=== PATIENT | male | born 1950 | race Caucasian/White ===

== ENCOUNTER 2019-06-07 00:45 | Day surgery (SDC) | payer MEDICARE, SELFPAY ==
[2019-04-17 14:32] VITALS: BMI 27.8
[2019-06-07 07:16] VITALS: BP 141/81; PULSE 78; RESP 20; TEMP 36.6; O2SAT 99; BMI 28.3
--- NOTE | 2019-06-07 07:41 | PM.HPGS ---
History of Present Illness History of Present Illness Consent: Risks, benefits, and alternatives have been discussed and questions answered. Patient agrees to proceed with procedure. Chief complaint: Neoplasm Screening Narrative: Tim Kinney Jr. is a 68 year old male here for screening colonoscopy PMF Past Medical History Medical History Torn rotator cuff Surgical History Surgical History H/O arthroscopy of knee History of carpal tunnel release History of repair of rotator cuff Family History Family History Mother Family history of glaucoma Father Family history of chronic obstructive pulmonary disease Social History Social History Smoking status: Never smoker Alcohol intake: current Gender identity (if verbalized by the patient): Male Meds Home Medications and Allergies Home Medications Medication Instructions Recorded Confirmed Type multivitamin 1 tablet PO DAILY 02/19/19 04/17/19 History aspirin 325 mg PO DAILY 04/17/19 06/07/19 History atorvastatin 10 mg tablet 10 mg PO DAILY #90 tablet 04/23/19 06/05/19 Rx glucos sul [id number]-C-Mn 1 cap PO DAILY 06/05/19 06/05/19 History [Glucosamine Chondroitin] omega 7-awi-vmb-fish oil [Fish Oil] 1 cap PO DAILY 06/05/19 06/05/19 History Allergies Allergy/AdvReac Type Severity Reaction Status Date / Time No Known Allergies Allergy Verified 06/07/19 07:31 Vital Signs Vital Signs - 24 hr 06/07/19 07:16 Temperature 36.6 C Pulse Rate 78 Respiratory Rate 20 Blood Pressure 141/81 H Pulse Oximetry 99 Exam Resp: Auscultation: clear to auscultation bilaterally Cardio: Rate: regular rate Rhythm: regular rhythm GI: GI Palp: Yes Soft to palpation and No Tenderness to palpation present (GI) Assessment and Plan Assessment and plan (1) Colon cancer screening: Code(s): Z12.11 - Encounter for screening for malignant neoplasm of colon Status: Acute Assessment and Plan: Colonoscopy with possible biopsy or polypectomy or cautery or injection of substances.
[2019-06-07] MEDS: LACTATED RINGERS 1,000 ML 150 ML IV CONT (07:47)
--- NOTE | 2019-06-07 08:03 | WPDANESEPPF ---
Anes - Initial Pre Proc Eval Procedure: Operation Date: 06/07/19 08:30 Proposed Procedures p Screening Colonoscopy - Jann Jimenez MD Date/Time: 06/07/19 08:03 Surgeon: Jann Jimenez MD Pre Op Diagnosis: Neoplasm Screening Patient Data Age: 68 Gender: M Height: 6 ft Weight: 94.9 kg Last Vital Signs Temp 97.9 F 06/07/19 07:16 Pulse 78 06/07/19 07:16 Resp 20 06/07/19 07:16 BP 141/81 H 06/07/19 07:16 Pulse Ox 99 06/07/19 07:16 Allergies Allergy/AdvReac Type Severity Reaction Status Date / Time No Known Allergies Allergy Verified 06/07/19 07:31 Home Medications Medication Instructions Recorded Confirmed Type multivitamin 1 tablet PO DAILY 02/19/19 04/17/19 History aspirin 325 mg PO DAILY 04/17/19 06/07/19 History atorvastatin 10 mg tablet 10 mg PO DAILY #90 tablet 04/23/19 06/05/19 Rx glucos sul 2MQd-mev-qarhf-C-Mn 1 cap PO DAILY 06/05/19 06/05/19 History [Glucosamine Chondroitin] omega 2-xie-oxd-fish oil [Fish Oil] 1 cap PO DAILY 06/05/19 06/05/19 History Patient hx anesthesia problems: none Family hx anesthesia problems: none PMFSH Past Medical History Medical History (Updated 06/07/19 @ 08:03 by Norris Luz MD) Mixed hyperlipidemia Torn rotator cuff Surgical History Surgical History H/O arthroscopy of knee History of carpal tunnel release History of repair of rotator cuff Family History Family History Mother Family history of glaucoma Father Family history of chronic obstructive pulmonary disease Social History Social History Smoking status: Never smoker Alcohol intake: current Gender identity (if verbalized by the patient): Male Anes - Eval Final PreProcedure Day of Procedure 06/07/19 08:03 Patient weight: normal Heart: regular rate and rhythm Lungs: clear to auscultation Airway: Mallampati scale class II Neurological: alert and oriented Last oral intake: >/= 8 hours ASA classification: II Emergent: no Anesthetic plan: proceed Anesthesia type and monitoring: general GIVS and standard monitoring Informed Consent: The patient's anesthetic plan and its attendant risks and benefits were discussed with the patient/family/POA. Questions were solicited and answers provided to the satisfaction of the patient/family/POA.
--- NOTE | 2019-06-07 08:28 | SUR.OPER ---
Two transverse colon polyps cold snared- one specimen obtained- MD aware.
[2019-06-07 08:33] VITALS: BP 114/73; PULSE 76; RESP 18; O2SAT 94
[2019-06-07 08:43] VITALS: BP 123/79; PULSE 72; RESP 19; O2SAT 98
[2019-06-07 08:53] VITALS: BP 140/94; PULSE 70; RESP 18; O2SAT 97
== END 2019-06-07 09:13 | disposition home or self-care (01) ==
PROVIDERS: PCP Family Medicine; Visit Provider Internal Medicine Gastroenterology
PROC: 0DJD8ZZ Inspection of Lower Intestinal Tract, Via Natural or Artificial Opening Endoscopic (ICD-10-PCS; CPT 45378; principal; 2019-06-07 08:30)
DX: Z12.11 Encounter for screening for malignant neoplasm of colon (principal); D12.3 Benign neoplasm of transverse colon; K57.30 Diverticulosis of large intestine without perforation or abscess without bleeding; Z79.82 Long term (current) use of aspirin; E78.2 Mixed hyperlipidemia
CPT/HCPCS: 45385; 88305; J2704; J7120

== ENCOUNTER 2021-12-28 15:06 | Outpatient (CLI) | payer MEDICARE, SELFPAY ==
[2021-12-28 19:25] LABS: Iron 82 ug/dL (49-181)
[2021-12-28 19:36] LABS: Percent Iron Saturation 26 % (20-50)
[2021-12-28 20:16] LABS: Prostate Specific Antigen 0.9 ng/mL (< OR = 4.0)
[2022-01-01 18:25] LABS: Testosterone Free 23.6 pg/mL (35.0-155.0); Testosterone Total 175 ng/dL (250-1100)
== END 2021-12-28 15:07 | disposition home or self-care (01) ==
PROVIDERS: PCP Internal Medicine; Visit Provider Internal Medicine
DX: E29.1 Testicular hypofunction (principal); Z12.5 Encounter for screening for malignant neoplasm of prostate
CPT/HCPCS: 36415; 83540; 83550; 84153; 84402; 84403; G0103

== ENCOUNTER 2022-04-21 09:46 | Outpatient (CLI) | payer MEDICARE, SELFPAY ==
[2022-04-21 19:23] LABS: Hematocrit 52.4 % (42.0-52.0); Hemoglobin 17.4 g/dL (14.0-18.0); Mean Corpuscular HGB Conc 33.2 g/dl (32-36); Mean Corpuscular Hemoglobin 30.5 pg (26-34); Mean Corpuscular Volume 91.8 fl (80-100); Mean Platelet Volume 11.6 fl (7.4-10.4); Platelet Count Result 186 k/mm3 (150-375); Red Blood Count 5.71 M/mm3 (4.6-6.20); Red Cell Distribution Width 13.2 % (11.5-14.5); White Blood Count 7.1 K/mm3 (4.5-10.0)
[2022-04-21 20:13] LABS: Prostate Specific Antigen 1.5 ng/mL (< OR = 4.0)
[2022-04-21 21:44] LABS: Hemoglobin A1C 5.8 % (<5.7)
[2022-04-28 08:19] LABS: Testosterone Free 507.9 pg/mL (35.0-155.0); Testosterone Total 1814 ng/dL (250-1100)
== END 2022-04-21 09:47 | disposition home or self-care (01) ==
LOC: ANHGOSHLAB 09:48
PROVIDERS: PCP Internal Medicine; Visit Provider Internal Medicine
DX: E29.1 Testicular hypofunction (principal); G47.19 Other hypersomnia; I10 Essential (primary) hypertension; H61.20 Impacted cerumen, unspecified ear; N40.0 Benign prostatic hyperplasia without lower urinary tract symptoms; Z79.890 Hormone replacement therapy; Z79.899 Other long term (current) drug therapy
CPT/HCPCS: 36415; 83036; 84153; 84402; 84403; 85027

== ENCOUNTER → 2022-05-04 15:06 | Outpatient (CLI) | payer MEDICARE, SELFPAY ==
--- NOTE | ~2022-05-04 | XR_ITS ---
EXAMINATION: XR_[id number]_CR DATE: 05/04/2022 15:21 INDICATION: Left arm pain and numbness. TECHNIQUE: 3 views of cervical spine were obtained. COMPARISON: None. FINDINGS: Bone alignment is normal. Vertebral body heights are normal. There is mildly decreased disc height at C5-C6 and severely decreased disc height at C6-C7. There is multilevel mild facet joint os teoarthritis. There is multilevel uncovertebral joint osteoarthritis, severe bilaterally at C5-C6 and C6-C7. There is mild central canal stenosis at C5-C6 and C6-C7. No prevertebral soft tissue swelling . IMPRESSION: 1. Severe cervical spondylosis. Reviewed, dictated and finalized at location A. RER BRUSH CLEARING
--- NOTE | ~2022-05-04 | XR_ITS ---
EXAMINATION: XR shoulder LT min 2V INDICATION: Left shoulder pain TECHNIQUE: Four views of the left shoulder are submitted. COMPARISON: None FINDINGS: Normal alignment. No fracture. There is mild osteoarthritis of the glenohumeral and acromio clavicular joints. Soft tissues are unremarkable. IMPRESSION: 1. Mild osteoarthritis without acute osseous abnormality. Reviewed, dictated and finalized at location B. UCT COORDINATOR
== END ==
PROVIDERS: PCP Internal Medicine; Visit Provider Nurse Practitioner
DX: R20.2 Paresthesia of skin (principal); M19.012 Primary osteoarthritis, left shoulder; M47.892 Other spondylosis, cervical region
CPT/HCPCS: 72040; 73030

== ENCOUNTER 2022-05-12 09:00 | Outpatient (CLI) | payer MEDICARE, SELFPAY ==
--- NOTE | 2022-05-28 23:26 | WPDHOMESLEEP ---
Sleep Study - Home Unattended Date of Study: 05/12/22 Ordering Provider: Benito De Santiago DO Interpreting Provider: Kym Garcia DO Home Sleep Study Type: Watch PAT Height: 1.83 m Weight: 92.986 kg Body Mass Index: 27.8 Neck Circumference (inches): 16.5 [place]: 5 Reason for Sleep Study Difficulty falling asleep and staying asleep Sleep History The patient is a 71-year-old male with hypertension, hyperlipidemia and low testosterone that had a sleep study ordered by his primary care for evaluation of sleep apnea. The patient denies awakening from sleep short of breath. He denies awakening at night with heartburn, belching or cough. He frequently snores but is rarely loud enough that others complain. He rarely has trouble sleeping when he has a cold. He denies waking up gasping for air throughout the night. He denies having breathing problems at night observed by himself or others. He occasionally sweats excessively at night. He rarely has heart palpitations or irregular heartbeats during the night. He rarely falls asleep during the day but never while driving. He denies sleep paralysis and cataplexy. He denies having trouble at school or work due to sleepiness. He rarely experiences vivid dreamlike scenes upon awakening or falling asleep. He rarely feels afraid of going to sleep. He rarely has nightmares. He frequently remembers his dreams. He frequently has thoughts racing through his mind. He occasionally feels sad, depressed and anxious. He occasionally has muscular tension. He rarely notices parts of his body jerk. He denies kicking during the night. He denies having crawling and aching feelings in his legs and denies having leg pain during the night. He rarely grinds his teeth during sleep but never awakens with morning jaw pain. He is occasionally bothered by pain during the night. He is rarely awakened by pain during the night. He occasionally wakes up feeling stiff in the morning. He occasionally wakes up with sore or achy muscles. He rarely wakes up with pain in the neck, spine or other joints. He goes to bed at midnight on both weekdays and weekends. He can take him a few minutes up to a few hours to fall asleep. He will wake up 0-2 times throughout the night for unknown reasons. the amount of time it takes for him to fall back asleep is variable. He wakes up between 7-8 a.m. on both weekdays and weekends. He typically gets 6-7 hours of sleep per night. He will stay in bed for a minimum of 30 minutes after waking up in the morning. He currently lives with his . He does not consume any caffeinated beverages within 2 hours of bedtime. He does not engage in physical exercise before bedtime. He will read before falling asleep. He denies watching television before falling asleep. He denies taking naps in the afternoon or the evening. He drinks 2-3 cups of caffeinated beverage per day. He quit smoking cigarettes 20 years ago. He consumes 1-3 alcoholic beverages per day. He denies recreational drug use. [facility] Past Medical History Medical History Essential hypertension Long-term current use of testosterone cypionate Mixed hyperlipidemia Torn rotator cuff Surgical History Surgical History H/O arthroscopy of knee History of carpal tunnel release History of repair of rotator cuff Family History Family History Mother Family history of glaucoma Dementia Father Family history of chronic obstructive pulmonary disease Alzheimer disease Social History Social History Smoking status: Former smoker Smoking end date: 03/27/02 Alcohol intake: current Drinks per week: 14 Alcohol use details: beer, wine, bourbon Substance use: current
[2022-05-28 23:35] VITALS: BMI 27.8
== END 2022-05-13 10:22 | disposition home or self-care (01) ==
LOC: ANHCSM 09:02
PROVIDERS: PCP Internal Medicine; Visit Provider Internal Medicine
DX: G47.10 Hypersomnia, unspecified (principal); G47.33 Obstructive sleep apnea (adult) (pediatric)
CPT/HCPCS: 95800

== ENCOUNTER 2022-05-19 12:33 | Outpatient (CLI) | payer MEDICARE, SELFPAY ==
--- NOTE | ~2022-05-19 | MR_ITS ---
MRI of the cervical spine Clinical History: Cervical radiculopathy Technique: Axial T2-weighted and gradient images, and sagittal T1-weighted, T2-weighted, and STIR issac ges were acquired. COMPARISON: 10/20/2010 Findings: No fracture identified. Minimal grade 1 retrolisthesis of C6 over C7 is present. No suspici ous bone marrow signal abnormality seen. At C2-C3 and C3-C4, there is no disc bulge or herniation. No spinal canal stenosis, cord compression, or neural foraminal narrowing at these levels. At C4-C5, there is minimal disc bulge. There is mild facet arthropathy. No spinal canal stenosis or c ord compression. There is right neural foraminal narrowing. At C5-C6, disc osteophyte complex is present, resulting in mild ventral compression of the left side of the spinal cord. There is bilateral neural foraminal narrowing. At C6-C7, disc osteophyte complex results in mild to moderate canal stenosis and associated mild to p ossibly moderate ventral cord compression. Bilateral neural foramina are probably narrowed. No abnormal signal seen in the spinal cord. Paravertebral soft tissues are unremarkable. Impression: Degenerative spondylosis, worst at C5-C6 and C6-C7. There is mild ventral compression of the left mian e of spinal cord at C5-C6, and mild to possibly moderate canal stenosis and cord compression at C6-C7 . Please see details above. Minimal grade 1 retrolisthesis of C6 over C7. Reviewed, dictated and finalized at [facility]. LE POURER Impression: Degenerative spondylosis, worst at C5-C6 and C6-C7. There is mild ventral compr ession of the left side of spinal cord at C5-C6, and mild to possibly moderate canal stenosis and cord compression at C6-C7. Please see details above. Minimal grade 1 retrolisthesis of C6 over C7.
== END 2022-05-19 12:34 | disposition home or self-care (01) ==
PROVIDERS: PCP Internal Medicine; Visit Provider Nurse Practitioner
DX: M47.22 Other spondylosis with radiculopathy, cervical region (principal)
CPT/HCPCS: 72141

== ENCOUNTER 2022-07-28 09:45 | Outpatient (CLI) | payer MEDICARE, SELFPAY ==
[2022-07-28 12:50] LABS: Basophils Absolute Auto 0.1 K/mm3 (0.0-0.1); Basophils Percent Auto 0.6 % (0.2-1.2); Eosinophils Absolute Auto 0.1 K/mm3 (0-0.3); Eosinophils Percent Auto 1.5 % (0-4.4); Hematocrit 57.8 % (42.0-52.0); Hemoglobin 19.3 g/dL (14.0-18.0); Immature Granulocyte Absolute 0.04 K/mm3 (0.00-0.031); Immature Granulocyte Percent A 0.5 % (0-0.5); Lymphocytes Absolute Auto 2.03 K/mm3 (0.9-3.2); Lymphocytes Percent Auto 24.7 % (18.3-44.2); Mean Corpuscular HGB Conc 33.4 g/dl (32-36); Mean Corpuscular Hemoglobin 31.9 pg (26-34); Mean Corpuscular Volume 95.5 fl (80-100); Mean Platelet Volume 10.6 fl (7.4-10.4); Monocytes Absolute Auto 0.6 K/mm3 (0.1-0.6); Monocytes Percent Auto 7.5 % (2.6-8.5); Neutrophils Absolute Auto 5.4 K/mm3 (1.3-6.7); Neutrophils Percent Auto 65.2 % (45.5-73.1); Platelet Count Result 212 k/mm3 (150-375); Red Blood Count 6.05 M/mm3 (4.6-6.20); White Blood Count 8.2 K/mm3 (4.5-10.0)
[2022-07-28 13:10] LABS: Alanine Aminotransferase 42 U/L (6-50); Albumin Level 4.6 g/dL (3.5-5.1); Alkaline Phosphatase 75 U/L (38-126); Anion Gap 5 mmol/L (8-16); Aspartate Amino Transferase 45 U/L (17-59); Bilirubin,Total 1.1 mg/dL (0.2-1.3); Blood Urea Nitrogen 22 mg/dL (9-20); Calcium 9.7 mg/dL (8.4-10.2); Carbon Dioxide 37 mmol/L (22-30); Chloride 97 mmol/L (98-107); Estimated Glomerular Filt Rate > 60; Glucose 79 mg/dL (65-110); Potassium 5.3 mmol/L (3.4-5.0); Sodium 139 mmol/L (137-145)
[2022-07-28 13:27] LABS: Prostate Specific Antigen 1.7 ng/mL (< OR = 4.0)
[2022-08-02 18:15] LABS: Testosterone Free 427.4 pg/mL (35.0-155.0); Testosterone Total 1532 ng/dL (250-1100)
== END 2022-07-28 09:46 | disposition home or self-care (01) ==
LOC: ANHGOSHLAB 09:46
PROVIDERS: PCP Internal Medicine; Visit Provider Internal Medicine
DX: E29.1 Testicular hypofunction (principal); I10 Essential (primary) hypertension; Z79.890 Hormone replacement therapy; N40.0 Benign prostatic hyperplasia without lower urinary tract symptoms
CPT/HCPCS: 36415; 80053; 84153; 84402; 84403; 85025

== ENCOUNTER 2022-08-04 10:17 | Outpatient (CLI) | payer MEDICARE, SELFPAY ==
[2022-08-04 19:23] LABS: Anion Gap 9 mmol/L (8-16); Blood Urea Nitrogen 17 mg/dL (9-20); Calcium 9.1 mg/dL (8.4-10.2); Carbon Dioxide 31 mmol/L (22-30); Chloride 98 mmol/L (98-107); Estimated Glomerular Filt Rate > 60; Glucose 93 mg/dL (65-110); Potassium 4.3 mmol/L (3.4-5.0); Sodium 138 mmol/L (137-145)
[2022-08-04 21:06] LABS: Hemoglobin A1C 5.9 % (<5.7)
== END 2022-08-04 10:18 | disposition home or self-care (01) ==
LOC: ANHGOSHLAB 10:18
PROVIDERS: PCP Internal Medicine; Visit Provider Internal Medicine
DX: E87.5 Hyperkalemia (principal); R73.9 Hyperglycemia, unspecified; Z79.899 Other long term (current) drug therapy
CPT/HCPCS: 36415; 80048; 83036

== ENCOUNTER 2022-12-09 09:35 | Outpatient (CLI) | payer MEDICARE, SELFPAY ==
[2022-12-09 10:11] LABS: Basophils Percent Auto 0.3 % (0.2-1.2); Eosinophils Absolute Auto 0.3 K/mm3 (0-0.3); Eosinophils Percent Auto 4.1 % (0-4.4); Hematocrit 52.5 % (42.0-52.0); Hemoglobin 17.8 g/dL (14.0-18.0); Immature Granulocyte Absolute 0.02 K/mm3 (0.00-0.031); Immature Granulocyte Percent A 0.3 % (0-0.5); Lymphocytes Absolute Auto 1.96 K/mm3 (0.9-3.2); Lymphocytes Percent Auto 29.7 % (18.3-44.2); Mean Corpuscular HGB Conc 33.9 g/dl (32-36); Mean Corpuscular Hemoglobin 32.5 pg (26-34); Mean Corpuscular Volume 95.8 fl (80-100); Mean Platelet Volume 10.3 fl (7.4-10.4); Monocytes Absolute Auto 0.5 K/mm3 (0.1-0.6); Monocytes Percent Auto 7.3 % (2.6-8.5); Neutrophils Absolute Auto 3.8 K/mm3 (1.3-6.7); Neutrophils Percent Auto 58.3 % (45.5-73.1); Platelet Count Result 171 k/mm3 (150-375); Red Blood Count 5.48 M/mm3 (4.6-6.20); Red Cell Distribution Width 13.1 % (11.5-14.5); White Blood Count 6.6 K/mm3 (4.5-10.0)
[2022-12-14 15:23] LABS: Testosterone Free 179.1 pg/mL (30.0-135.0); Testosterone Total 705 ng/dL (250-1100)
== END 2022-12-09 09:36 | disposition home or self-care (01) ==
PROVIDERS: PCP Internal Medicine; Visit Provider Internal Medicine
DX: E29.1 Testicular hypofunction (principal); D75.1 Secondary polycythemia; H61.20 Impacted cerumen, unspecified ear; Z79.890 Hormone replacement therapy
CPT/HCPCS: 36415; 84402; 84403; 85025

== ENCOUNTER 2023-02-12 10:30 | Emergency (ER) | payer MEDICARE, SELFPAY ==
[2023-02-12 10:43] VITALS: BP 168/91; PULSE 91; RESP 16; TEMP 36.5; O2SAT 100
--- NOTE | 2023-02-12 10:51 | ED.LOWEXIN ---
HPI - Extremity Injury (Lower) General Chief Complaint: Extremity Injury, Lower Stated Complaint: left leg wound Time Seen by Provider: 02/12/23 10:45 Source: patient and RN notes reviewed Mode of arrival: ambulatory Limitations: no limitations History of Present Illness HPI Narrative: Patient presents today complaining of a wound to the left lower fink that was sustained 5 days ago at home when the limb of a tree that he was trimming fell onto his leg. He has been cleaning with peroxide and soap and water, applying Neosporin and a Band-Aid. States it has been slightly improving, but wanted to come in for an evaluation. He is not up-to-date on his tetanus vaccine Related Data Home Medications Medication Instructions Recorded Confirmed multivitamin 1 tablet PO DAILY 02/19/19 02/12/23 glucosamine sulf dipot 1 cap PO DAILY 06/05/19 02/12/23 chlr,msm,chond 550 mg-C 30 mg-irineo 1 mg capsule (Glucosamine Chondroitin) omega 6-mui-ggq-fish oil 1,000 mg 1 cap PO DAILY 06/05/19 02/12/23 (120 mg-180 mg) capsule (Fish Oil) aspirin 81 mg tablet,delayed 81 mg PO DAILY 12/28/21 02/12/23 release (Adult Low Dose Aspirin) Allergies Allergy/AdvReac Type Severity Reaction Status Date / Time No Known Allergies Allergy Verified 02/12/23 10:40 Review of Systems Review of Systems: CONSTITUTIONAL: Denies body aches, fever, chills, or sweats. EYES: Denies visual changes, redness, or discharge. ENT: Denies rhinorrhea, congestion, sore throat, or otalgia. CARDIOVASCULAR: Denies chest pain, palpitations, or edema. RESPIRATORY: Denies cough or dyspnea. GASTROINTESTINAL: Denies abdominal pain, nausea, vomiting, or diarrhea. GENITOURINARY: Denies dysuria or hematuria. SKIN: Denies rash, itching. + wound to left lower leg MUSCULOSKELETAL: Denies back pain, joint pain, or myalgia. NEUROLOGIC: Denies headache, numbness, tingling, or weakness. PSYCH: Denies depression or anxiety. [facility] Past Medical History Medical History Essential hypertension Long-term current use of testosterone cypionate Mixed hyperlipidemia Torn rotator cuff Surgical History Surgical History H/O arthroscopy of knee History of carpal tunnel release History of repair of rotator cuff Family History Family History Mother Family history of glaucoma Dementia Father Family history of chronic obstructive pulmonary disease Alzheimer disease Social History Social History Smoking status: Former smoker Smoking end date: 03/27/02 Alcohol intake: current Drinks per week: 14 Alcohol use details: beer, wine, bourbon Substance use: current Substance use type: marijuana Lack of Transportation: No Lack of Food: Never True Current Housing: I Have Housing Concerned About Future Housing: No Difficulty Paying Gas/Electric Bills: No Difficulty Paying for Meds: No Currently Unemployed: No Education: High School Diploma/GED Difficulty w/ Childcare or Family Care: No Gender identity (if verbalized by the patient): Male Comments At time of signature, I have reviewed and agree with nursing past medical, surgical, social and family history unless otherwise noted. Please see nursing chart for further information. There is no relevant family history pertinent to the presenting complaint Exam Narrative: GENERAL: Well-appearing, well-nourished, and in no acute distress. HEAD: Normocephalic, atraumatic. EYES: EOMI. No redness or drainage. Conjunctivae normal. ENT: Mucous membranes pink and moist. NECK: Normal AROM. CHEST: No respiratory distress. EXTREMITIES: Normal range of motion. No edema. SKIN: Warm, dry, no rash. Capillary refill normal. Normal skin turgor
[2023-02-12] MEDS: TETANUS,DIPHTHERIA,AC PERTUSSIS ADULT (0.5 ML) BOOSTRIX IM (10:55)
== END 2023-02-12 11:06 | disposition home or self-care (01) ==
PROVIDERS: Emergency Provider Nurse Practitioner; PCP Internal Medicine
DX: S80.812A Abrasion, left lower leg, initial encounter (principal); I10 Essential (primary) hypertension; E78.2 Mixed hyperlipidemia; Z87.891 Personal history of nicotine dependence; Z79.899 Other long term (current) drug therapy; Z79.82 Long term (current) use of aspirin; Z23 Encounter for immunization; W45.8XXA Other foreign body or object entering through skin, initial encounter
CPT/HCPCS: 90471; 90715; 99213; G0463

== ENCOUNTER 2023-03-15 09:50 | Outpatient (CLI) | payer MEDICARE, SELFPAY ==
[2023-03-15 18:53] LABS: Basophils Absolute Auto 0.1 K/mm3 (0.0-0.1); Basophils Percent Auto 0.5 % (0.2-1.2); Eosinophils Absolute Auto 0.2 K/mm3 (0-0.3); Eosinophils Percent Auto 1.6 % (0-4.4); Hematocrit 55.2 % (42.0-52.0); Hemoglobin 18.6 g/dL (14.0-18.0); Immature Granulocyte Absolute 0.05 K/mm3 (0.00-0.031); Immature Granulocyte Percent A 0.5 % (0-0.5); Lymphocytes Absolute Auto 2.22 K/mm3 (0.9-3.2); Mean Corpuscular HGB Conc 33.7 g/dl (32-36); Mean Corpuscular Hemoglobin 31.8 pg (26-34); Mean Corpuscular Volume 94.4 fl (80-100); Mean Platelet Volume 10.8 fl (7.4-10.4); Monocytes Absolute Auto 0.6 K/mm3 (0.1-0.6); Monocytes Percent Auto 5.9 % (2.6-8.5); Neutrophils Absolute Auto 6.2 K/mm3 (1.3-6.7); Neutrophils Percent Auto 67.5 % (45.5-73.1); Platelet Count Result 198 k/mm3 (150-375); Red Blood Count 5.85 M/mm3 (4.6-6.20); Red Cell Distribution Width 12.7 % (11.5-14.5); White Blood Count 9.3 K/mm3 (4.5-10.0)
[2023-03-15 19:41] LABS: Hemoglobin A1C 6.2 % (<5.7)
[2023-03-15 21:21] LABS: Alanine Aminotransferase 55 U/L (6-50); Albumin Level 4.6 g/dL (3.5-5.1); Alkaline Phosphatase 68 U/L (38-126); Anion Gap 8 mmol/L (8-16); Aspartate Amino Transferase 39 U/L (17-59); Bilirubin,Total 1.1 mg/dL (0.2-1.3); Blood Urea Nitrogen 20 mg/dL (9-20); Calcium 9.4 mg/dL (8.4-10.2); Carbon Dioxide 30 mmol/L (22-30); Chloride 100 mmol/L (98-107); Estimated Glomerular Filt Rate > 60; Glucose 110 mg/dL (65-110); Potassium 4.3 mmol/L (3.4-5.0); Sodium 138 mmol/L (137-145)
[2023-03-15 21:52] LABS: Prostate Specific Antigen 1.5 ng/mL (< OR = 4.0)
[2023-03-22 11:47] LABS: Testosterone Free 158.5 pg/mL (30.0-135.0); Testosterone Total 624 ng/dL (250-1100)
== END 2023-03-15 09:51 | disposition home or self-care (01) ==
PROVIDERS: PCP Internal Medicine; Visit Provider Internal Medicine
DX: N40.0 Benign prostatic hyperplasia without lower urinary tract symptoms (principal); D75.1 Secondary polycythemia; E29.1 Testicular hypofunction; Z79.890 Hormone replacement therapy; R73.9 Hyperglycemia, unspecified; H61.20 Impacted cerumen, unspecified ear
CPT/HCPCS: 36415; 80053; 83036; 84153; 84402; 84403; 85025

== ENCOUNTER 2023-06-22 12:33 | Outpatient (CLI) | payer MEDICARE, SELFPAY ==
[2023-06-22 19:12] LABS: Alanine Aminotransferase 39 U/L (6-50); Albumin Level 4.6 g/dL (3.5-5.1); Alkaline Phosphatase 63 U/L (38-126); Aspartate Amino Transferase 56 U/L (17-59)
[2023-06-22 19:35] LABS: Hematocrit 50.9 % (42.0-52.0); Hemoglobin 17.2 g/dL (14.0-18.0); Mean Corpuscular HGB Conc 33.8 g/dl (32-36); Mean Corpuscular Hemoglobin 31.9 pg (26-34); Mean Corpuscular Volume 94.4 fl (80-100); Mean Platelet Volume 11.3 fl (7.4-10.4); Platelet Count Result 198 k/mm3 (150-375); Red Blood Count 5.39 M/mm3 (4.6-6.20); Red Cell Distribution Width 12.6 % (11.5-14.5); White Blood Count 6.9 K/mm3 (4.5-10.0)
[2023-06-22 19:50] LABS: Hemoglobin A1C 6.1 % (<5.7)
[2023-06-22 20:12] LABS: Hepatitis C Virus Antibody Negative (Negative)
== END 2023-06-22 12:34 | disposition home or self-care (01) ==
LOC: ANHGOSHLAB 12:34
PROVIDERS: PCP Internal Medicine; Visit Provider Internal Medicine
DX: R74.8 Abnormal levels of other serum enzymes (principal); D75.1 Secondary polycythemia; R73.9 Hyperglycemia, unspecified; Z79.899 Other long term (current) drug therapy; H61.20 Impacted cerumen, unspecified ear; M25.512 Pain in left shoulder
CPT/HCPCS: 36415; 80076; 82728; 83036; 85027; 86803

== ENCOUNTER 2023-10-04 08:34 | Outpatient (CLI) | payer MEDICARE, SELFPAY ==
[2023-10-04 12:53] LABS: Basophils Percent Auto 0.4 % (0.2-1.2); Eosinophils Percent Auto 0.2 % (0-4.4); Hematocrit 56.2 % (42.0-52.0); Hemoglobin 19.1 g/dL (14.0-18.0); Immature Granulocyte Absolute 0.07 K/mm3 (0.00-0.031); Immature Granulocyte Percent A 0.6 % (0-0.5); Lymphocytes Percent Auto 22.4 % (18.3-44.2); Mean Corpuscular Hemoglobin 32.3 pg (26-34); Mean Corpuscular Volume 95.1 fl (80-100); Mean Platelet Volume 11.3 fl (7.4-10.4); Monocytes Absolute Auto 0.7 K/mm3 (0.1-0.6); Monocytes Percent Auto 6.2 % (2.6-8.5); Neutrophils Absolute Auto 7.8 K/mm3 (1.3-6.7); Neutrophils Percent Auto 70.2 % (45.5-73.1); Platelet Count Result 205 k/mm3 (150-375); Red Blood Count 5.91 M/mm3 (4.6-6.20); Red Cell Distribution Width 13.2 % (11.5-14.5); White Blood Count 11.2 K/mm3 (4.5-10.0)
[2023-10-04 13:38] LABS: Alanine Aminotransferase 41 U/L (6-50); Albumin Level 4.8 g/dL (3.5-5.1); Alkaline Phosphatase 59 U/L (38-126); Anion Gap 10 mmol/L (4-12); Aspartate Amino Transferase 74 U/L (17-59); Bilirubin,Total 1.4 mg/dL (0.2-1.3); Blood Urea Nitrogen 26 mg/dL (9-20); Calcium 9.3 mg/dL (8.4-10.2); Carbon Dioxide 32 mmol/L (22-30); Chloride 95 mmol/L (98-107); Cholesterol 163 mg/dL (0-200); Estimated Glomerular Filt Rate > 60; Glucose 100 mg/dL (65-110); HDL Direct 56 mg/dL; Potassium 4.3 mmol/L (3.4-5.0); Sodium 137 mmol/L (137-145); Triglycerides 101 mg/dL (<150)
[2023-10-04 13:52] LABS: LDL Cholesterol Direct 90 mg/dL
[2023-10-08 17:53] LABS: Testosterone Free 303.1 pg/mL (30.0-135.0); Testosterone Total 1012 ng/dL (250-1100)
== END 2023-10-04 08:35 | disposition home or self-care (01) ==
PROVIDERS: PCP Internal Medicine; Visit Provider Internal Medicine
DX: D75.1 Secondary polycythemia (principal); E74.39 Other disorders of intestinal carbohydrate absorption; R73.9 Hyperglycemia, unspecified; R74.8 Abnormal levels of other serum enzymes; Z79.899 Other long term (current) drug therapy; N40.0 Benign prostatic hyperplasia without lower urinary tract symptoms; Z12.5 Encounter for screening for malignant neoplasm of prostate; H61.20 Impacted cerumen, unspecified ear; E78.2 Mixed hyperlipidemia
CPT/HCPCS: 36415; 80053; 80061; 83036; 84153; 84402; 84403; 85025; G0103

== ENCOUNTER 2023-10-24 08:07 | Outpatient (CLI) | payer MEDICARE, SELFPAY ==
--- NOTE | 2023-10-26 17:21 | WPDSLEEPSTUD ---
Sleep Study Date of Study: 10/24/23 Ordering Provider: Benito De Santiago DO Interpreting Physician: Lashay Lord MD Sleep Study Type: Split Polysomnogram Height: 1.83 m Weight: 89.358 kg Body Mass Index: 26.7 Neck Circumference (inches): 17 [place]: 3 Reason for Sleep Study Difficulty falling asleep and staying asleep * 05/12/2022 Home sleep test with AHI 14.8 and garcía 76% Sleep History Tim Kinney Jr is a 72-year old man who had a home sleep test 05/12/2022 with an AHI of 14.8 and desaturation to 76%. He has hypertension, hyperlipidemia, erythrocytosis, and low testosterone. He has difficulties falling asleep at times. Sometimes, he wakes in the night and has difficulties returning to sleep. He does not awaken from sleep short of breath. He denies awakening at night with heartburn, belching or coughing. He frequently snores but is rarely loud enough that others complain. He occasionally has trouble sleeping when he has a cold. He denies waking up gasping for air throughout the night. He denies having breathing problems at night observed by others. He occasionally sweats excessively at night. He does not have heart palpitations or irregular heartbeats during the night. He rarely falls asleep during the day but never while driving. He denies sleep paralysis and cataplexy. He denies having trouble at school or work due to sleepiness. He rarely experiences vivid dreamlike scenes upon awakening or falling asleep. He rarely feels afraid of going to sleep. He rarely has nightmares. He occasionally remembers his dreams. He occasionally has thoughts racing through his mind. He occasionally feels sad, depressed and anxious. He occasionally has muscular tension. He never notices parts of his body jerking. He denies kicking during the night. He denies having crawling and aching feelings in his legs and denies having leg pain during the night. He occasionally grinds his teeth during sleep and occasionally awakens with morning jaw pain. He is occasionally bothered by pain during the night. He never awakens due to pain during the night. He occasionally wakes up feeling stiff in the morning. He occasionally wakes up with sore or achy muscles. He rarely wakes up with pain in the neck, spine or other joints. He goes to bed at 11:30 p.m., falls asleep within 15 minutes however sometimes he nay require 2 hours to fall asleep. He wakes between 7:00 a.m. and 8:00 a.m.. He estimates getting between 6 and 7 hours of sleep at night. He wakes at night at tiems, sometimes not at all, and other times, up to 2 times in the night. While awake, he goes to the bathroom and gets a drink of water. He denies taking naps in the afternoon or the evening. Habits: Tobacco: quit 21 years ago Caffeine: 2 cups per day Alcohol: 2-3 per day Recreational substances: none [facility] Past Medical History Medical History (Updated 10/26/23 @ 17:37 by Lashay Lord MD) Erythrocytosis Essential hypertension Long-term current use of testosterone cypionate Mixed hyperlipidemia Torn rotator cuff Surgical History Surgical History H/O arthroscopy of knee History of carpal tunnel release History of hand surgery History of repair of rotator cuff Family History Family History Mother Family history of glaucoma Dementia Father Family history of chronic obstructive pulmonary disease Alzheimer disease Social History Social History Smoking status: Former smoker Smoking end date: 03/27/02 Alcohol intake: current Drinks per week: 14 Alcohol use details: beer, wine, bourbon Substance use: current Substance use type: marijuana Do You Feel Safe in your Home?: Yes Lack
[2023-10-26 17:53] VITALS: BMI 26.7
== END 2023-10-25 07:26 | disposition home or self-care (01) ==
LOC: ANHCSM 08:07
PROVIDERS: PCP Internal Medicine; Visit Provider Internal Medicine
DX: G47.33 Obstructive sleep apnea (adult) (pediatric) (principal)
CPT/HCPCS: 95811

== ENCOUNTER 2024-01-11 09:58 | Outpatient (CLI) | payer MEDICARE, SELFPAY ==
[2024-01-11 19:03] LABS: Basophils Percent Auto 0.3 % (0.2-1.2); Eosinophils Absolute Auto 0.1 K/mm3 (0-0.3); Eosinophils Percent Auto 0.9 % (0-4.4); Hematocrit 53.9 % (42.0-52.0); Hemoglobin 18.7 g/dL (14.0-18.0); Immature Granulocyte Absolute 0.13 K/mm3 (0.00-0.031); Immature Granulocyte Percent A 1.1 % (0-0.5); Lymphocytes Absolute Auto 2.82 K/mm3 (0.9-3.2); Lymphocytes Percent Auto 24.3 % (18.3-44.2); Mean Corpuscular HGB Conc 34.7 g/dl (32-36); Mean Corpuscular Hemoglobin 33.5 pg (26-34); Mean Corpuscular Volume 96.6 fl (80-100); Mean Platelet Volume 10.9 fl (7.4-10.4); Monocytes Absolute Auto 0.7 K/mm3 (0.1-0.6); Monocytes Percent Auto 6.2 % (2.6-8.5); Neutrophils Absolute Auto 7.8 K/mm3 (1.3-6.7); Neutrophils Percent Auto 67.2 % (45.5-73.1); Platelet Count Result 185 k/mm3 (150-375); Red Blood Count 5.58 M/mm3 (4.6-6.20); Red Cell Distribution Width 12.4 % (11.5-14.5); White Blood Count 11.6 K/mm3 (4.5-10.0)
[2024-01-11 19:32] LABS: Alanine Aminotransferase 47 U/L (6-50); Albumin Level 4.5 g/dL (3.5-5.1); Alkaline Phosphatase 53 U/L (38-126); Anion Gap 6 mmol/L (4-12); Aspartate Amino Transferase 33 U/L (17-59); Bilirubin,Total 1.2 mg/dL (0.2-1.3); Blood Urea Nitrogen 25 mg/dL (9-20); Calcium 9.6 mg/dL (8.4-10.2); Carbon Dioxide 34 mmol/L (22-30); Chloride 97 mmol/L (98-107); Estimated Glomerular Filt Rate > 60; Glucose 111 mg/dL (65-110); Potassium 4.7 mmol/L (3.4-5.0); Sodium 137 mmol/L (137-145)
== END 2024-01-11 09:59 | disposition home or self-care (01) ==
LOC: ANHGOSHLAB 09:59
PROVIDERS: PCP Internal Medicine; Visit Provider Internal Medicine
DX: D75.1 Secondary polycythemia (principal); E29.1 Testicular hypofunction; I10 Essential (primary) hypertension; R74.8 Abnormal levels of other serum enzymes; Z79.890 Hormone replacement therapy; N40.0 Benign prostatic hyperplasia without lower urinary tract symptoms
CPT/HCPCS: 36415; 80053; 82248; 84153; 84402; 84403; 85025

== ENCOUNTER 2024-01-18 09:47 | Outpatient (CLI) | payer MEDICARE, SELFPAY ==
--- NOTE | ~2024-01-18 | XR_ITS ---
XR hip BI 2V w AP pelvis Ordering provider: Benito De Santiago DO History: . No injury bilateral hip pain goes down left leg for 1 month . Comparison: None. FINDINGS: BONES: No acute fracture or dislocation. HIP JOINT SPACES: Bilateral moderate to severe osteoarthritic changes. SACROILIAC JOINT SPACES/LUMBAR SPINE: The sacroiliac joint spaces are normal. Mild degenerative orr es of the visualized lower lumbar spine. PUBIC SYMPHYSIS: Normal. SOFT TISSUES: Normal. IMPRESSION: No acute osseous abnormality of the bilateral hips and pelvis. Bilateral severe hip osteoarthritic changes Reviewed, dictated and finalized at location A.
== END 2024-01-18 09:48 | disposition home or self-care (01) ==
LOC: GOSHIMG 09:48
PROVIDERS: PCP Internal Medicine; Visit Provider Internal Medicine
DX: M16.0 Bilateral primary osteoarthritis of hip (principal)
CPT/HCPCS: 73521

== ENCOUNTER 2024-02-25 08:27 | Emergency (ER) | payer MEDICARE, SELFPAY ==
--- NOTE | 2024-02-25 08:29 | ED.EAR ---
HPI - Ear Problem General Chief complaint: Ear Stated complaint: EARS CLOGGED Time Seen by Provider: 02/25/24 08:29 Source: patient Mode of arrival: ambulatory Limitations: no limitations History of Present Illness HPI Narrative: Tim is a 73-year-old male patient presenting to the clinic today with complaints of bilateral ears being clogged up with ear wax. He reports has decreased hearing in both ears. This is been going on for several days. He denies any ear pain, URI symptoms, or fever. Related Data Home Medications Medication Instructions Recorded Confirmed antiarthritic combination no.2 900 mg PO 01/01/24 01/18/24 mg tablet (glucosamine-chondroitin) Mandibular Device 01/18/24 testosterone cypionate 200 mg/mL 60 mg IM WEEKLY 01/18/24 02/25/24 intramuscular oil Allergies Allergy/AdvReac Type Severity Reaction Status Date / Time No Known Allergies Allergy Verified 02/25/24 08:34 Review of Systems Review of Systems: Pertinent positives per HPI. Patient denies any fever, chills, rash, headache, visual changes, dizziness, cough, runny nose, sore throat, shortness of breath, chest pain, palpitations, nausea, vomiting, diarrhea, constipation, abdominal pain, or any urinary issues. [facility] Past Medical History Medical History Erythrocytosis Essential hypertension Long-term current use of testosterone cypionate Mixed hyperlipidemia Torn rotator cuff Surgical History Surgical History H/O arthroscopy of knee History of carpal tunnel release History of hand surgery History of repair of rotator cuff Family History Family History Mother Family history of glaucoma Dementia Father Family history of chronic obstructive pulmonary disease Alzheimer disease Social History Social History Years smoked: 30 Smoking status: Former smoker Tobacco type: cigarettes Smoking end date: 12/05/02 Alcohol intake: current Drinks per week: 14 Alcohol use details: beer, wine, bourbon Substance use: current Substance use type: marijuana Do You Feel Safe in your Home?: Yes Lack of Transportation: No Lack of Food: Never True Current Housing: I Have Housing Concerned About Future Housing: No Difficulty Paying Gas/Electric Bills: No Difficulty Paying for Meds: No Currently Unemployed: No Difficulty w/ Childcare or Family Care: No Gender identity (if verbalized by the patient): Male Spiritual care concerns: No Comments At the time of my signature, I reviewed and agree with the nursing past medical, surgical, social, and family history. There is no relevant family history pertinent to the patient complaint. Exam Narrative: General: Well-developed, well nourished, in no apparent distress Head: Normocephalic, atraumatic Eyes: Pupils equally round and reactive to light bilaterally, EOM intact, sclera and conjunctive clear, no discharge, lids normal Ears: Cerumen impaction bilaterally, ear irrigation was performed successfully, left TM intact and clear, right TM intact, bulging, red, ear canals clear, no drainage, grossly hearing normal. Nose: Nares patent, no discharge, no inflammation, no sinus tenderness. Mouth: Oropharynx without lesions or masses, good dentition, MMM. Neck: Supple, trachea midline, no enlargement of anterior or posterior cervical nodes, no thyroid masses or goiter palpable. Cardio: Regular rate and rhythm, s1 and s2 normal, no murmur appreciated. Resp: Clear to auscultation bilaterally anteriorly and posteriorly, no rhonchi, rales, wheezing or rubs Course Course Emergency Course: Portions of this record may have been created with voice recognition software. Level of Care: Express Care Visit Vital Signs Vital signs: Vital signs reviewed Procedures Ear Wax Removal Both Ears: Ear Wax Removal Date: 02/25/24 Results: Re-examined: cerumen removed completely TM Examination: TM(s) intact, normal appearance (Left) and TM(s) erythematous (Right) Ear Canal Exam: atraumatic Patient Tolerated Procedure: well and no complications Complications: no problems Technique: ear canal irrigated and ear canal curetted Additional Comments: Verbal consent obtained for ear irrigation. Risk and benefits explained and patient voiced understanding. Ear irrigation performed using an elephant ear and spray water bottle. Mixture of 1/2 peroxide 1/2 water used to irrigate ear canal. Cerumen impaction cleared and TM visualized without redness. Grossly hearing normal. Patient tolerated procedure well Medical Decision Making MDM Narrative Medical decision making narrative: At the time of visit patient is resting comfortably on the exam table. Patient appears to be nontoxic. Plan: Ear irrigation was performed in the clinic today successfully. Patient has right otitis media. Patient tolerated procedure well. Prescription for amoxicillin was sent to the pharmacy. Supportive measures were discussed with the patient and they voiced understanding discharge instructions and agrees to treatment plan. Return precautions reviewed Differential Diagnosis Differential Diagnosis: Otitis media, otitis externa, eustachian tube dysfunction, cerumen impaction, upper respiratory infection, serous otitis Discharge Plan Discharge Clinical Impression: Bilateral impacted cerumen, Acute right otitis media Patient Disposition: Home, Self-Care Condition: Stable Instructions: Antibiotic Form, Ear Infection (ED) Additional Instructions: Irrigation was performed successfully bilaterally Take any prescribed medications only as directed-amoxicillin Tylenol/motrin as needed for pain May use heating pad to alleviate pain If you get recurrent ear infections it may be warranted to follow up with ENT. Follow up with your PCP in 3-5 days if symptoms persist. Prescriptions: New amoxicillin 875 mg tablet 875 mg PO Q12H 7 Days Qty: 14 0RF No Action hydrochlorothiazide 12.5 mg tablet 12.5 mg PO DAILY Qty: 90 2RF losartan 50 mg tablet 50 mg PO DAILY Qty: 90 3RF testosterone cypionate 200 mg/mL oil 60 mg IM WEEKLY (DME) Mandibular Device 0 .ROUTE .MEDSUPPLY amlodipine 2.5 mg tablet 2.5 mg PO DAILY Qty: 30 5RF glucosamine-chondroitin 900 mg tablet PO (DME) BD Regular Bevel [place] 18 gauge x 1 1/2 needle See Rx Instructions .Route Qty: 100 2RF Rx Instructions: Use to draw up Testosterone (DME) BD Luer-Giovanni Syringe 3 mL 25 x 1 1/2 syringe See Rx Instructions .Route Qty: 100 3RF Rx Instructions: Use to inject Testosterone atorvastatin 10 mg tablet See Rx Instructions .ROUTE .COMPLEX Qty: 90 1RF Dose Instruction: TAKE 1 TABLET DAILY Rx Instructions: TAKE 1 TABLET DAILY Follow-up/Referrals: Benito De Santiago DO [Primary Care Provider] - Time of Disposition: 08:48 Quality NIHSS Nursing Documentation ED NIHSS nursing documentation: reviewed/agree
[2024-02-25 08:40] VITALS: BP 161/87; PULSE 81; RESP 16; TEMP 37; O2SAT 100
== END 2024-02-25 08:59 | disposition home or self-care (01) ==
PROVIDERS: Emergency Provider Nurse Practitioner Family; PCP Internal Medicine
DX: H66.91 Otitis media, unspecified, right ear (principal); H61.23 Impacted cerumen, bilateral; Z87.891 Personal history of nicotine dependence; I10 Essential (primary) hypertension; E78.2 Mixed hyperlipidemia
CPT/HCPCS: 69209; 99213; G0463

== ENCOUNTER 2024-03-25 11:00 | Outpatient (RCR) | payer MEDICARE, SELFPAY ==
--- NOTE | 2024-02-13 14:14 | OPREHPOC ---
Outpatient Therapy Plan of Care This is a Multidisciplinary Plan of Care that may contain components documented by all disciplines (PT, OT, and ST.) PT Problem 1 PT Problem #1 Knowledge Deficit PT Goal 1 Goal / Goal Update 1. Pt to be IND with issued HEP Target Visit 10 PT Problem 2 PT Problem #2 Pain PT Goal 1 Goal / Goal Update 1. Pt to report hip pain no greater than 3/10 in the last week. 2. Pt to report a 75% improvement in symptoms. Target Visit 10 PT Problem 3 PT Problem #3 Impaired Gait PT Goal 1 Goal / Goal Update 1. Pt to demonstrate neutral hip alignment during ambulation.
--- NOTE | 2024-02-13 14:14 | PTOPEVAL1 ---
Assessment and note entered by Taryn Jaramillo, PT, DPT Evaluation Information Assessment Status Evaluation Diagnosis L hip pain ICD-10 Condition Codes (PT) Pain in left hip M25.552 Subjective Information Pt reports occasional R hip pain for the last 1-2 years, states at times it feels like it was going to pop out and his motion was really limited. In Nov he [place] a [place] country drive and during that drive he would have to pick his leg up to get into the car. In Nov, without known cause all of these symptoms have transferred to his L hip. Since then he reports L groin, low back, hip, knee , and calf pain at time. Currently he is still having L thigh and groin pain. He states his R side has not bothered him in 6 weeks. Pt uses an elliptical 3x/wk for about 20 mins at a time. Reported Pain Level Pain Score 1: Self Report Assessment PT Clinical Summary Pt presents to therapy today for his initial evaluation with a diagnosis of L hip and leg pain. Today he demonstrates decreased hip extension ROM and limited hip rotation ROM bilaterally. During ambulation he does not demonstrate any active hip extension and has an uncompensated R sided hip drop. With exercise, pt has excessive lumbar motion and strain placed to compensate for his limited hip mobility. Skilled therapy services are indicated to address the deficits noted above, to manage pain, to improve movement mechanics, and to return to prior level of function. Plan of Care Interventions Electrical Stimulation,Gait Training,Hot Pack/Cold Pack,Manual Therapy,Neuro Re-education,Patient/ Caregiver Educati,Therapeutic Activities, Therapeutic Exercise PT Services Indicated Yes Treatment Frequency and 2x/wk for 10 visits Duration These treatments will address the objective and functional deficits as defined above. The patient will be advanced safely and appropriately in order for the patient to progress towards his/her prior level of function. Additional exercises will be introduced and as well as a comprehensive home exercise program upon discharge, if needed, ?to ensure carryover of functional gains achieved in the clinic. This treatment plan has been reviewed and agreement upon by the patient.
--- NOTE | 2024-03-25 11:56 | OPREHPOC ---
Outpatient Therapy Plan of Care This is a Multidisciplinary Plan of Care that may contain components documented by all disciplines (PT, OT, and ST.) PT Problem 1 PT Problem #1 Knowledge Deficit PT Goal 1 Goal / Goal Update 1. Pt to be IND with issued HEP Target Visit 10 Progress Met PT Problem 2 PT Problem #2 Pain PT Goal 1 Goal / Goal Update 1. Pt to report hip pain no greater than 3/10 in the last week. 2. Pt to report a 75% improvement in symptoms. Target Visit 10 Progress Met PT Problem 3 PT Problem #3 Impaired Gait PT Goal 1 Goal / Goal Update 1. Pt to demonstrate neutral hip alignment during ambulation. Progress Met
--- NOTE | 2024-03-25 11:56 | PTOPDC ---
Assessment and note entered by Taryn Jaramillo, PT, DPT Evaluation Information Assessment Status Discharge Diagnosis L hip pain ICD-10 Condition Codes (PT) Pain in left hip M25.552 Subjective Information Pt states overall his hip is feeling better, he continues to have mainly L sided groin pain. He states he can walk further than when he started and his pain is much better. He states he followed up with an orthopedic who suggested surgery at some point in the future, does not feel he needs it now. Reported Pain Level Pain Score 0: Self Report Assessment PT Clinical Summary Pt presents to therapy today for his progress report following 10 visits of therapy to treat his L hip and leg pain. Today he demonstrates improved body and movement mechanics with exercise , less deviations with ambulation, and less pain reports. He has met all of his therapy goals. He will be d/c'ed at this time to continue his HEP IND and will follow up with ortho as needed. Plan of Care PT Services Indicated No
== END 2024-03-25 12:39 | disposition home or self-care (01) ==
LOC: ANHGOSHPT 11:00
PROVIDERS: PCP Internal Medicine; Visit Provider Internal Medicine
DX: M25.552 Pain in left hip (principal); M25.652 Stiffness of left hip, not elsewhere classified
CPT/HCPCS: 97110; 97140; 97161; 97530

== ENCOUNTER 2024-04-10 09:24 | Outpatient (CLI) | payer MEDICARE, SELFPAY ==
[2024-04-10 14:53] LABS: Basophils Percent Auto 0.3 % (0.2-1.2); Eosinophils Absolute Auto 0.2 K/mm3 (0-0.3); Eosinophils Percent Auto 2.9 % (0-4.4); Hematocrit 52.6 % (42.0-52.0); Hemoglobin 17.7 g/dL (14.0-18.0); Immature Granulocyte Absolute 0.02 K/mm3 (0.00-0.031); Immature Granulocyte Percent A 0.3 % (0-0.5); Lymphocytes Absolute Auto 1.97 K/mm3 (0.9-3.2); Lymphocytes Percent Auto 27.4 % (18.3-44.2); Mean Corpuscular HGB Conc 33.7 g/dl (32-36); Mean Corpuscular Hemoglobin 32.6 pg (26-34); Mean Corpuscular Volume 96.9 fl (80-100); Mean Platelet Volume 11.8 fl (7.4-10.4); Monocytes Absolute Auto 0.5 K/mm3 (0.1-0.6); Monocytes Percent Auto 7.4 % (2.6-8.5); Neutrophils Absolute Auto 4.4 K/mm3 (1.3-6.7); Neutrophils Percent Auto 61.7 % (45.5-73.1); Platelet Count Result 179 k/mm3 (150-375); Red Blood Count 5.43 M/mm3 (4.6-6.20); White Blood Count 7.2 K/mm3 (4.5-10.0)
== END 2024-04-10 09:25 | disposition home or self-care (01) ==
LOC: ANHGOSHLAB 09:26
PROVIDERS: PCP Internal Medicine; Visit Provider Nurse Practitioner
DX: Z51.81 Encounter for therapeutic drug level monitoring (principal); Z79.890 Hormone replacement therapy
CPT/HCPCS: 36415; 84402; 84403; 85025

== ENCOUNTER 2024-05-27 11:29 | Outpatient (CLI) | payer MEDICARE, SELFPAY ==
[2024-05-27 15:07] LABS: Anion Gap 9 mmol/L (4-12); Blood Urea Nitrogen 19 mg/dL (9-20); Calcium 9.6 mg/dL (8.4-10.2); Carbon Dioxide 32 mmol/L (22-30); Chloride 98 mmol/L (98-107); Estimated Glomerular Filt Rate > 60; Glucose 103 mg/dL (65-110); Magnesium 2.1 mg/dL (1.6-2.3); Potassium 4.3 mmol/L (3.4-5.0); Sodium 139 mmol/L (137-145)
== END 2024-05-27 11:30 | disposition home or self-care (01) ==
LOC: ANHGOSHLAB 11:31
PROVIDERS: PCP Internal Medicine; Visit Provider Internal Medicine
DX: I49.9 Cardiac arrhythmia, unspecified (principal)
CPT/HCPCS: 36415; 80048; 83735

== ENCOUNTER 2024-08-12 15:03 | Outpatient (CLI) | payer MEDICARE, SELFPAY ==
--- OUTSIDE RECORDS SUMMARY | 2024-08-12 15:09 | XMS_ITS | Encounter Summary ---
Author Organization [facility] Address [address] [place] [address] Care Team Providers Care Houseman Name Role Phone Unavailable Primary Care Provider Unavailabl e Encounter Details Date Type Department Care Team (Late st Contact Info) Description 05/16/2024 Lab Requisition [facility] - DermPath Lab [address] [place] [address] Gagan Morrison MD [facility] DERMATOLOGY [address] [place] [id number] Neoplasm of uncertain behavior of skin Social History Tobacco Use Types Packs/Day Years Used Date Smoking Tobacco: Former Sex and Gender Information Value Date Recorded Sex Assigned at Not on file Legal Sex Male 5:51 AM CHEMICAL MANAGER Gender Identity Not on file Sexual Orientation Not on file documented as of this encounter Plan of Treatment Not on file documented as of this encounter Procedures Procedure Name Priority Date/Time Associated Diagnosis Comments DERMATOPATHOLOGY Routine 05/16/2024 12:0 0 AM CHEMICAL MANAGER Neoplasm of uncertain behavior of skin documented in this encounter Results * DERMATOPATHOLOGY (05/16/2024 12:00 AM CHEMICAL MANAGER) Case Report Dermatopathology Report Case: [id number] Authorizing Provider: Gagan Morrison MD Collected: 05/16/2024 12:00 AM Ordering Location: [facility] - Received: 05/17/2024 01:58 PM DermPath Lab Pathologist: Luann Joshua MD Specimen: Skin, left dorsal nose 1:26 PM CHEMICAL MANAGER DERMATOPATHOLOGY LABORATORY Final Diagnosis Specimen A. SKIN, left dorsal nose: BASAL CELL CARCINOMA, INFILTRATIVE PATTERN (C44.311) 1:26 PM [facility] DERMATOPATHOLOGY LABORATORY at [address] CHEMICAL MANAGER Clinical History Neoplasm of Uncertain Behavior vs BCC 1:26 PM [facility] DERMATOPATHOLOGY LABORATORY Gross Description Specimen A: Received is one formalin filled container labeled with the patient's name and designated left dorsal nose. The specimen consists of a shave biopsy measuring 6x6x1 mm. Jar 0. 1:26 PM [facility] DERMATOPATHOLOGY LABORATORY Microscopic Description Specimen A. SKIN, left dorsal nose: Within the dermis there are nodular aggregates of basaloid cells associated with fibromyxoid stroma and epithelial-stromal clefts. At the advancing margin of the neoplasm, there are smaller angulated nests that infiltrate the dermis. 1:26 PM [facility] DERMATOPATHOLOGY LABORATORY Disclaimer An external and internal positive and negative controls are appropriate for the histochemical, immunohistochemical and immunofluorescence stain(s) in this case (if any), except where stated explicitly. The performance characteristics of the stain(s) cited in this report were developed and its performance characteristic determined by the Dermatopathology Laboratory at [facility], directed by Dr. Lizeth Palmer. These tests need not be, and therefore are not, approved by the [place] Food and Drug Administration. The tests are used for clinical purposes. Billing Codes Specimen Charges Stain Charges 79274 1 1:26 PM [facility] DERMATOPATHOLOGY LABORATORY Embedded Images 1:26 PM [facility] DERMATOPATHOLOGY LABORATORY Pathology/Cytolog y TISSUE SPECIMEN FROM SKIN / Unknown 05/16/2024 05/17/2024 1:58 PM [facility] us Gagan Morrison MD LAB - PATHOLOGY/CYTOLOGY [facility] Final Result DERMATOPATHOLOGY LABORATORY [facility] - Department of Dermatology [address] [place] [address], [facility] [phone] documented in this encounter Visit Diagnoses Diagnosis Neoplasm of uncertain behavior of skin documented in this encounter
--- OUTSIDE RECORDS SUMMARY | 2024-08-12 15:09 | XMS_ITS | Clinical Summary ---
Author Organization [facility] Address [address] [place] [address] Care Team Providers Care Tire Recapper Name Role Phone Aleks Levine MD Primary Care Provider [phone] Allergies No known active allergies Medications atorvastatin (LIPITOR) 10 mg tablet TK 1 T PO Q DAY 9 Active losartan (COZAAR) 25 mg tablet Take 1 tablet (25 mg total) by mouth daily 3 Active testosterone cypionate (DEPO-TESTOTERO NE) 200 mg/mL injection 1 mL (200 mg total) once a week Monday 2 Active aspirin 81 mg enteric coated tabletIndicatio ns:prevention of thrombosis Take 1 tablet (81 mg total) by mouth every morning Active glucosamine-cho nd-msm-vit C-Mn 500-400-166.6 mg tabletIndicatio ns:For supplement Take by mouth every morning Active mv-min/folic/K1 /lycopen/lutein (CENTRUM SILVER MEN ORAL)Indication s:For supplement Take by mouth every morning Active acetaminophen (TYLENOL) 500 mg tablet Take 1 tablet (500 mg total) by mouth every 6 (six) hours as needed for pain 30 tablet 3 Active oxyCODONE (ROXICODONE) 5 mg immediate release tabletIndicatio ns:Pain Take 1 tablet (5 mg total) by mouth every 6 (six) hours as needed for pain 12 tablet 3 Active Additional Information Patient not taking.Reported on 03/23/2023 acetaminophen-c odeine (TYLENOL with CODEINE #3) 300-30 mg per tablet Take by mouth every 6 (six) hours as needed for pain 3 Active cephalexin (KEFLEX) 500 mg capsule TAKE 1 CAPSULE BY MOUTH EVERY 6 HOURS FOR 7 DAYS 3 Active Active Problems Problem Noted Date Diagnosed Date Injury of collateral ligament of finger 03/07/20 23 Injury of radial collateral ligament of left wri st 12/13/2022 Immunizations Immunization Administration Dates Next Due Influenza, Quadrivalent, Spl it, Preservative Free, Intramuscular 12/04/2017 Influenza, Trivalent, IM (MDV) 04/12/2017 Pneumococcal Polysaccharide PPV23 08/21/2018 Tdap 10/20/2014 Surgical History Surgery Date Site/Laterality Comments CARPAL TUNNEL RELEASE 03/27/2017 - 03/26/2018 Bilateral SHOULDER OPEN ROTATOR CUFF REPAIR 03/27/2012 - 3 Right TONSILLECTOMY as a child HERNIA REPAIR as a child Medical History Medical History Date Comments Cataract Hyperlipidemia Hypertension Family History Medical History Relation Name Comments Dementia Father Hypertension Father Dementia Mother Glaucoma Mother Hypertension Mother Macular degeneration Mother Anesthesia problems Neg Hx Relation Name Status Comments Father Mother Social History Tobacco Use Types Packs/Day Years Used Date Smoking Tobacco: Former Cigarettes 0.3 28 1 975 - 2002 Smokeless Tobacco: Never AUDIT-C Answer Date Recorded Q1: How often do you have a drink containing alcohol? 4 or more times a week 03/07/2023 Q2: How many drinks containi ng alcohol do you have on a typical day when you are drinking? 3 or 4 3 Q3: How often do you have si x or more drinks on one occasion? Never 03/07/2023 Personal Safety Answer Date Recorded Have you ever been in or are you currently in a harmful physical or emotional relationship or is someone making you feel afraid or unsafe? Denies 03/07/2023 Sex and Gender Information Value Date Recorded Sex Assigned at Not on file Legal Sex Male 3:39 AM DEPUTY MANAGER Gender Identity Not on file Sexual Orientation Not on file Obstetrics History Last Filed Vital Signs Vital Sign Reading Time Taken Comments Blood Pressure 154/85 03/07/2023 10:20 AM DEPUTY MANAGER Pulse 82 03/07/2023 10:30 AM DEPUTY MANAGER Temperature 36.2 C (97.2 F) 03/07/2023 9:31 AM DEPUTY MANAGER Respiratory Rate 13 03/07/2023 10:30 AM DEPUTY MANAGER Oxygen Saturation 96% 03/07/2023 10:30 AM DEPUTY MANAGER Inhaled Oxygen Concentration - - Weight 90.7 kg (200 lb) 03/07/2023 6:46 AM DEPUTY MANAGER Height 182.9 cm (6') 03/07/2023 6:46 AM DEPUTY MANAGER Body Mass Index 27.12 03/07/2023 6:46 AM DEPUTY MANAGER Plan of Treatment Health Maintenance Due Date Last Done Comments Colon Cancer Screening-Colonoscopy 1950 Depression Screening 1950 Fall Risk Assessment 1950 Hepatitis C Screening 1950 Hepatitis B Screening 1970 Zoster Vaccine (1 of 2) 2002 Abdominal Aortic Aneurysm (AAA) Screen 2017 Well Visit 65+ 2017 Pneumococcal vaccine 65+ (2 of 2 - PCV) 08/22/2019 0 08/21/2018 Influenza Vaccine (#1) 2023 12/04/2017, 2017 DTaP/Tdap/Td Vaccine (2 - Td or Tdap) 10/20/2024 Medical Devices Implanted Type Area Collar Runner Device Identifier Shelf Expiration Date Model / Serial / Lot [employer] Internalbrace Kit Hand Wrist Set Implant Ligament Augmentation Ar-8978-Cp - [id number] Implanted:Qty: 1 on 03/07/2023 by Pet, Kevon Nathan MD at [facility] [employer] [id number] 10/25/2027 AR-8978-C P / / [id number] Insurance MEDICARE [facility] Care Teams Tire Recapper Relationship Specialty Start Date End Date Aleks Levine MD [address] [place] [id number] PCP - General 08/07/14
--- OUTSIDE RECORDS SUMMARY | 2024-08-12 15:09 | XMS_ITS | Referral Summary ---
Author Organization [facility] Address [address] [place] [address] Care Team Providers Care Plasterer Apprentice Name Role Phone Aleks Levine MD Primary Care Provider [phone] Allergies No known active allergies Medications atorvastatin [...] 04/12/2017 Pneumococcal Polysaccharide PPV23 08/21/2018 Tdap 10/20/2014 Social History Tobacco Use Types Packs/Day Years [...] when you are drinking? 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:39 AM BIKE DESIGNER Gender Identity Not on file Sexual Orientation Not on file Last Filed Vital Signs Vital Sign Reading Time Taken Comments Blood Pressure 154/85 03/07/2023 10:20 AM BIKE DESIGNER Pulse 82 03/07/2023 10:30 AM BIKE DESIGNER Temperature 36.2 C (97.2 F) 03/07/2023 9:31 AM BIKE DESIGNER Respiratory Rate 13 03/07/2023 10:30 AM BIKE DESIGNER Oxygen Saturation 96% 03/07/2023 10:30 AM BIKE DESIGNER Inhaled Oxygen Concentration - - Weight 90.7 kg (200 lb) 03/07/2023 6:46 AM BIKE DESIGNER Height 182.9 cm (6') 03/07/2023 6:46 AM BIKE DESIGNER Body Mass Index 27.12 03/07/2023 6:46 AM BIKE DESIGNER Plan of Treatment Not on file Medical Devices Implanted Type Area Geophysical Operator Device Identifier Shelf Expiration Date Model / Serial / Lot [employer] Internalbrace Kit Hand Wrist Set Implant Ligament Augmentation Ar-8978-Cp - [id number] Implanted:Qty: 1 on 03/07/2023 by Kevon Ohara MD at [facility] [employer] [id number] 10/25/2027 [id number]-8978-C P / / [id number] Insurance MEDICARE [facility] [facility] MEDIC[facility] Care Teams Plasterer Apprentice Relationship Specialty Start Date End Date Aleks Levine MD [address] [place] [id number] PCP - General 08/07/14
--- OUTSIDE RECORDS SUMMARY | 2024-08-12 15:09 | XMS_ITS | Clinical Summary ---
Author Organization [facility] Address [address] [place] [address] Care Team Providers Care Repatcher Name Role Phone Unavailable Primary Care Provider Unavailabl e Source Comments [facility],non-owned Affiliates and Associated Physician Practices is amultiple site organization consisting of ambulatory clinics and hospital sitesin [place], [place], [place] and [place]. This disclosure is being madepursuant to the Care Everywhere program and may not contain all information available regarding this patient. Last updated 17.[facility] Allergies No known active allergies Medications * Be aware that medications may not be up to date on this document. Alwaysverify current medications with the patient. lovastatin (MEVACOR) 10 MG tablet Take 10 mg by mouth at bedtime. Active aspirin 325 MG tablet Take 325 mg by mouth once daily. Active hydrocodone-acet aminophen (VICODIN) 5-500 MG tablet Take 1 Tab by mouth every 4 hours as needed. Active carisoprodol (SOMA) 350 MG tablet Take 350 mg by mouth 3 times daily. 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 Gender Identity Not on file Sexual Orientation Not on file Last Filed Vital Signs Vital Sign Reading Time Taken Comments Blood Pressure 151/85 11/02/2010 10:49 AM CDT Pulse 75 11/02/2010 10:49 AM CDT Temperature - - Respiratory Rate 16 11/02/2010 10:49 AM CDT Oxygen Saturation 97% 11/02/2010 10:49 AM CDT Inhaled Oxygen Concentration - - Weight - - Height - - Body Mass Index - - Plan of Treatment Health Maintenance Due Date Last Done Comments COLOGUARD (AGES 45-75) - COL ON CA SCREENING 1952 COLON MONITORING 1952 COLONOSCOPY - COLON CA SCREENING 1952 CT COLONOGRAPHY - COLON CA SCREENING 1952 Colorectal Cancer Screening 1952 FIT - COLON CA SCREENING 1952 FLEX SIG - COLON CA SCREENING 1950 MEDICARE AWV 12 MONTHS 1952 HEPATITIS C SCREENING 12/01/1970 DTAP/TDAP/TD VACCINES (1 - Tdap) 12/06/1971 PNEUMOCOCCAL VACCINE 50+ (1 of 1 - PCV) 2002 ZOSTER VACCINE (1 of 2) 2002 AAA SCREENING 2017 COVID-19 VACCINE ( - 2023-2 5 season) 2023 DEPRESSION SCREENING 03/27/2024 INFLUENZA VACCINE (Season Ended) 2024 Respiratory Syncytial Virus (RSV) Vaccine Pt: or over 60 yrs (1 - 1-dose 75+ series) 12/06/2027 HEPATITIS B VACCINE Aged Out No longe r eligible based on patient's age to complete this topic HIB VACCINE Aged Out No longer eligi ble based on patient's age to complete this topic HPV VACCINE Aged Out No longer eligi ble based on patient's age to complete this topic MENINGOCOCCAL (Group B) VACC INE SHARED DECISION-MAKING Aged Out No longer eligibl e based on patient's age to complete this topic MENINGOCOCCAL GROUPS A/C/Y/W VACCINE Aged Out No longer eligible b ased on patient's age to complete this topic Procedures Procedure Name Priority Date/Time Associated Diagnosis Comments DERMATOPATHOLOGY Routine 05/16/2024 12:0 0 AM GUN BARREL FINISHER Neoplasm of uncertain behavior of skin from Last 3 Months Results * DERMATOPATHOLOGY (05/16/2024 12:00 AM GUN BARREL FINISHER) Case Report Dermatopathology Report Case: [id number] Authorizing Provider: Gagan Morrison MD Collected: 05/16/2024 12:00 AM Ordering Location: [facility] - Received: 05/17/2024 01:58 PM DermPath Lab Pathologist: Luann Joshua MD Specimen: Skin, left dorsal nose 1:26 PM GUN BARREL FINISHER DERMATOPATHOLOGY LABORATORY Final Diagnosis Specimen A. SKIN, left dorsal nose: BASAL CELL CARCINOMA, INFILTRATIVE PATTERN (C44.311) 1:26 PM GUN BARREL FINISHER DERMATOPATHOLOGY LABORATORY at 1326 GUN BARREL FINISHER Clinical History Neoplasm of Uncertain Behavior vs BCC 1:[address] [facility] DERMATOPATHOLOGY LABORATORY Gross Description Specimen A: Received is one formalin filled container labeled with the patient's name and designated left dorsal nose. The specimen consists of a shave biopsy measuring 6x6x1 mm. Jar 0. 1:[address] [facility] DERMATOPATHOLOGY LABORATORY Microscopic Description Specimen A. SKIN, left dorsal nose: Within the dermis there are nodular aggregates of basaloid cells associated with fibromyxoid stroma and epithelial-stromal clefts. At the advancing margin of the neoplasm, there are smaller angulated nests that infiltrate the dermis. 1:[address] [facility] DERMATOPATHOLOGY LABORATORY Disclaimer An external and internal positive and negative controls are appropriate for the histochemical, immunohistochemical and immunofluorescence stain(s) in this case (if any), except where stated explicitly. The performance characteristics of the stain(s) cited in this report were developed and its performance characteristic determined by the Dermatopathology Laboratory at [facility], directed by Dr. Lizeth Palmer. These tests need not be, and therefore are not, approved by the [place] Food and Drug Administration. The tests are used for clinical purposes. Billing Codes Specimen Charges Stain Charges 61450 1 1:[address] [facility] DERMATOPATHOLOGY LABORATORY Embedded Images 1:[address] [facility] DERMATOPATHOLOGY LABORATORY Pathology/Cytolog y TISSUE SPECIMEN FROM SKIN / Unknown 05/16/2024 05/17/2024 1:58 PM GUN BARREL FINISHER Gagan Morrison MD LAB - PATHOLOGY/CYTOLOGY TRISTANKelsey MICHEAL Final Result DERMATOPATHOLOGY LABORATORY [facility] - Department of Dermatology [facility] [address], [address] [place] [address], [facility] [phone] from Last 3 Months Insurance MEDICARE MEDICARE [facility]
--- OUTSIDE RECORDS SUMMARY | 2024-08-12 15:09 | XMS_ITS | Continuity of Care Document ---
Author Organization [facility] Address [address] [place] [address] [address] [place] [address] Phone Care Team Providers Care Technical Proposal Writer Name Role Phone Johansen OD, Hao Unavailable Unavailable Procedures Procedure Date Visual Field Examination(s) Advance Directives Directive Yes / No Effective Date File Name No Information Encounters Encounter Description Practice Location Reason(s) For Visit Diagnoses Date Provider Providers Copied on Encounter [facility], [id number] [place] [address] [address], [place], [place], [id number], tel:[phone] [facility] No Information 1-200 9 Johansen OD Hao. [facility] [address] [address], [place], [place], [facility], . tel:[phone] Referring Provider: Hao Hi, [address], [place], [place], [facility]. tel:[phone] Family History Family Member Type Diagnosis Age At Onset No Information Payers Payer name Insurance type Covered green party ID Authoriza tion(s) No Information Social History [...]
[2024-08-12 20:13] LABS: Basophils Percent Auto 0.4 % (0.2-1.2); Eosinophils Absolute Auto 0.3 K/mm3 (0-0.3); Eosinophils Percent Auto 3.3 % (0-4.4); Hematocrit 54.6 % (42.0-52.0); Hemoglobin 18.5 g/dL (14.0-18.0); Immature Granulocyte Absolute 0.02 K/mm3 (0.00-0.031); Immature Granulocyte Percent A 0.2 % (0-0.5); Lymphocytes Absolute Auto 2.13 K/mm3 (0.9-3.2); Mean Corpuscular HGB Conc 33.9 g/dl (32-36); Mean Corpuscular Hemoglobin 31.3 pg (26-34); Mean Corpuscular Volume 92.4 fl (80-100); Mean Platelet Volume 11.4 fl (7.4-10.4); Monocytes Absolute Auto 0.7 K/mm3 (0.1-0.6); Monocytes Percent Auto 7.7 % (2.6-8.5); Neutrophils Absolute Auto 5.4 K/mm3 (1.3-6.7); Neutrophils Percent Auto 63.4 % (45.5-73.1); Platelet Count Result 173 k/mm3 (150-375); Red Blood Count 5.91 M/mm3 (4.6-6.20); Red Cell Distribution Width 12.8 % (11.5-14.5); White Blood Count 8.5 K/mm3 (4.5-10.0)
[2024-08-12 22:23] LABS: Alanine Aminotransferase 31 U/L (6-50); Albumin Level 4.5 g/dL (3.5-5.1); Alkaline Phosphatase 50 U/L (38-126); Anion Gap 9 mmol/L (4-12); Aspartate Amino Transferase 42 U/L (17-59); Bilirubin,Total 0.8 mg/dL (0.2-1.3); Blood Urea Nitrogen 20 mg/dL (9-20); Calcium 9.3 mg/dL (8.4-10.2); Carbon Dioxide 30 mmol/L (22-30); Chloride 98 mmol/L (98-107); Estimated Glomerular Filt Rate > 60; Glucose 93 mg/dL (65-110); Potassium 4.3 mmol/L (3.4-5.0); Sodium 137 mmol/L (137-145)
== END 2024-08-12 15:04 | disposition home or self-care (01) ==
PROVIDERS: PCP Internal Medicine; Visit Provider Physician Assistant Surgical
DX: M25.551 Pain in right hip (principal); M25.552 Pain in left hip; Z79.1 Long term (current) use of non-steroidal anti-inflammatories (NSAID)
CPT/HCPCS: 36415; 80053; 85025

== ENCOUNTER 2024-09-09 08:36 | Outpatient (CLI) | payer MEDICARE, SELFPAY ==
--- NOTE | ~2024-09-09 | MR_ITS ---
MRI of the lumbar spine Clinical History: Radiculopathy Technique: Axial T2-weighted images, and sagittal T1-weighted, T2-weighted, and T2 fat-sat images wer e acquired. Findings: There is straightening of the normal lumbar lordosis. No fracture evident. There is 3 mm re trolisthesis of L2 over L3. There is 3 mm retrolisthesis of L3 over L4. Schmorl's node inferior endpl ate of L3 is present. There are Modic signal changes about the L5-S1 disc space due to underlying deg enerative disc disease. At L1-L2, there is minimal disc bulge and mild to moderate facet arthropathy. No central canal stenos is. There is moderate bilateral neural foraminal narrowing, right worse than left. At L2-L3, there is moderate degenerative distended. There is a large left paracentral disc extrusion extending inferiorly, resulting in moderate to severe compression of the thecal sac. There is probabl e impingement of the descending left-sided L3-L4 level nerve root. There is severe bilateral neural f oraminal narrowing at L2-L3. At L3-L4, there is moderate degenerative distended. There is disc bulge and moderate facet arthropath y. There is right lateral recess stenosis with severe right neural foraminal narrowing and moderate t o severe left neural foraminal narrowing. No pauly central canal stenosis. At L4-L5, there is mild disc bulge and moderate facet arthropathy. No central canal stenosis. There i s severe bilateral neural foraminal narrowing, left worse than right. At L5-S1, there is severe degenerative distended. There is disc bulge and moderate facet arthropathy. No central canal stenosis. There is severe bilateral neural foraminal narrowing. Paravertebral soft tissues are unremarkable. Impression: Large left paracentral disc extrusion at L2-L3 extending inferiorly, and probably impinging the desce nding left sided L3-L4 level nerve root, and also significantly compressing the thecal sac. Additional degenerative severe degenerative changes throughout the lumbar spine, with multilevel inder re neural foraminal narrowing and multilevel canal stenosis, as detailed above. Grade 1 listheses in the lumbar spine, as above. Reviewed, dictated and finalized at location M. Impression: Large left paracentral disc extrusion at L2-L3 extending inferiorly, and probab ly impinging the descending left sided L3-L4 level nerve root, and also signifi cantly compressing the thecal sac. Additional degenerative severe degenerative changes throughout the lumbar spine , with multilevel severe neural foraminal narrowing and multilevel canal stenos is, as detailed above. Grade 1 listheses in the lumbar spine, as above.
--- OUTSIDE RECORDS SUMMARY | 2024-09-09 08:48 | XMS_ITS | Referral Summary ---
Author Organization [facility] Address [address] [place] [address] Care Team Providers Care Shear Scrapman Name Role Phone Aleks Levine MD Primary Care Provider [phone] Encounters Date Type Department Care Team Description 09/06/2024 10:07 AM CDT - 09/06/2024 11:59 PM CDT Hospital Encounter [facility] [address] [place] [address] Luis Healy MD Primary osteoarthritis of left hip (Primary Dx); Left hip pain Discharge Disposition: Discharge to home or self care 09/04/2024 7:30 AM CDT Ancillary Procedure Radiology - [address] [place] [address] [address] [place] [address] Left hip pain 09/04/2024 8:00 AM CDT Office Visit [facility] Orthopaedic Surgery [address] [place] [address] 2nd Floor [address] [place] [address] Jackie Humphries PA Left hip pain (Primary Dx); Primary osteoarthritis of left hip from Last 3 Months Allergies No known active allergies Medications atorvastatin (LIPITOR) 10 mg tablet TK 1 T PO Q DAY 9 Active losartan (COZAAR) 25 mg tablet Take 1 tablet (25 mg total) by mouth daily 3 Active testosterone cypionate (DEPO-TESTOTER ONE) 200 mg/mL injection 1 mL (200 mg total) once a week Monday 2 Active glucosamine-ch ond-msm-vit C-Mn 500-400-166.6 mg tabletIndicati ons:For supplement Take by mouth every morning Active mv-min/folic/K 1/lycopen/lute in (CENTRUM SILVER MEN ORAL)Indicatio ns:For supplement Take by mouth every morning Active acetaminophen (TYLENOL) 500 mg tablet Take 1 tablet (500 mg total) by mouth every 6 (six) hours as needed for pain 30 tablet 3 Active oxyCODONE (ROXICODONE) 5 mg immediate release tabletIndicati ons:Pain Take 1 tablet (5 mg total) by mouth every 6 (six) hours as needed for pain 12 tablet 3 Active Additional Information Patient not taking.Reported on 03/23/2023 acetaminophen- codeine (TYLENOL with CODEINE #3) 300-30 mg per tablet Take by mouth every 6 (six) hours as needed for pain 3 Active cephalexin (KEFLEX) 500 mg capsule TAKE 1 CAPSULE BY MOUTH EVERY 6 HOURS FOR 7 DAYS 3 Active meloxicam (MOBIC) 15 mg tabletIndicati ons:Osteoarthr itis Take 1 tablet (15 mg total) by mouth daily 90 tablet 5 12/04/19 25 Active aspirin 81 mg enteric coated tabletIndicati ons:prevention of thrombosis Take 1 tablet (81 mg total) by mouth every morning 09/07/19 25 Discontin ued(Thera py completed ) Active Problems Problem Noted Date Diagnosed Date [...] making you feel afraid or unsafe? Denies 09/06/2024 Sex and Gender Information Value Date Recorded Sex Assigned at Not on file Legal Sex Male 3:39 AM PAYROLL TAX ANALYST Gender Identity Not on file Sexual Orientation Not on file Last Filed Vital Signs Vital Sign Reading Time Taken Comments Blood Pressure 149/89 09/06/2024 11:00 AM CDT Pulse 88 09/06/2024 11:00 AM CDT Temperature 36.2 C (97.2 F) 03/07/2023 9:31 AM PAYROLL TAX ANALYST Respiratory Rate 16 09/06/2024 11:00 AM CDT Oxygen Saturation 95% 09/06/2024 11:00 AM CDT Inhaled Oxygen Concentration - - Weight 90.7 kg (200 lb) 09/06/2024 10:17 AM CDT Height 182.9 cm (6') 09/06/2024 10:17 AM CDT Body Mass Index 27.12 09/06/2024 10:17 AM CDT Plan of Treatment Not on file Medical Devices Implanted Type Area Beehive Kiln Charcoal Burner Device Identifier Shelf Expiration Date Model / Serial / Lot [employer] Internalbrace Kit Hand Wrist Set Implant Ligament Augmentation Ar-8978-Cp - [id number] Implanted:Qty: 1 on 03/07/2023 by Kevon Ohara MD at [facility] [employer] [id number] 10/25/2027 AR-8978-C P / / [id number] Procedures Procedure Name Priority Date/Time Associated Diagnosis Comments FL FLUORO GUIDED INJECTION HIP LEFT Schedule Routine, Read Routine (OP Routine) 09/06/2024 10:58 AM CDT Left hip pain Primary osteoarthritis of left hip XR HIP LEFT W PELVIS 2 OR 3 VIEWS Schedule Routine, Read Routine (OP Routine) 09/04/2024 8:10 AM CDT Left hip pain from Last 3 Months Results * FL Fluoro Guided Injection Hip Left (09/06/2024 10:58 AM CDT) Narrative [facility] - 09/06/2024 10:58 AM CDT The images from this study are not interpreted by Radiology. Please refer to the physician's procedure / OR operative note. Jackie CRAWFORD IMG FLUOROSCOPY PROC EDURES Final Result [facility] * XR Hip Left 2 or 3 Views W Pelvis (09/04/2024 8:10 AM CDT) Anatomical Region Laterality Modality Lower Extremities, Hip, Pelvis Left C omputed Radiography 09/04/2024 8:14 AM CDT Impressions 09/04/2024 8:14 AM CDT Moderate left hip osteoarthritis. Electronically signed by: Daniel Omer M.D. Narrative 09/04/2024 8:14 AM CDT EXAMINATION: XR HIP LEFT 2 OR 3 VIEWS W PELVIS HISTORY: Left hip pain COMPARISON: None available FINDINGS: No acute fracture or dislocation. There is moderate bilateral hip osteoarthritis. Procedure Note Daniel Omer MD - 09/04/2024 EXAMINATION: XR HIP LEFT 2 OR 3 VIEWS W PELVIS HISTORY: Left hip pain COMPARISON: None available FINDINGS: No acute fracture or dislocation. There is moderate bilateral hip osteoarthritis. IMPRESSION: Moderate left hip osteoarthritis. Electronically signed by: Daniel Omer M.D. Jackie CRAWFORD IMG XR PROCEDURES Fi nal Result from Last 3 Months Insurance MEDICARE AARP Member Subscriber Plan / Payer ( fective 2019-Present) Name:Tim Kinney Relation to Subscriber:Self Name:Tim Kinney Payer ID:[id number] Group ID:Not on file Type:COMMERCIAL Address: [facility] [id number] [id number] [facility] MEDICARE Care Teams Shear Scrapman Relationship Specialty Start Date End Date Aleks Levine MD [address] [place] [address] PCP - General 08/07/14
--- OUTSIDE RECORDS SUMMARY | 2024-09-09 08:48 | XMS_ITS | Clinical Summary ---
Author Organization [facility] Address [address] [place] [address] Care Team Providers Care Tile Grinder Name Role Phone Unavailable Primary Care Provider Unavailabl e Source Comments [facility] [facility],non-owned Affiliates and Associated Physician Practices is amultiple site organization consisting of ambulatory clinics and hospital sitesin [place], [place] and [place]. This disclosure is being madepursuant to the Care Everywhere program and may not contain all information available regarding this patient. 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
--- OUTSIDE RECORDS SUMMARY | 2024-09-09 08:48 | XMS_ITS | Continuity of Care Document ---
Author Organization [facility] Address [address] [place] [address] [address] [place] [address] Phone Care Team Providers Care Stagecraft Professor Name Role Phone Johansen OD, Hao Unavailable Unavailable Procedures Procedure Date Visual Field Examination(s) Advance Directives Directive Yes / No Effective Date File Name No Information Encounters Encounter Description Practice Location Reason(s) For Visit Diagnoses Date Provider Providers Copied on Encounter [facility], [address] [place] [address] [address], [place], [place], [id number], tel:[phone] [facility] No Information 1-200 9 Johansen OD Hao. [facility] [address] [address], [place], [place], [facility][note 3], . tel:[phone] Referring Provider: Hao Hi, [address], [place], [place], [facility][note 3]. tel:[phone] Family History Family Member Type Diagnosis Age [...]
--- OUTSIDE RECORDS SUMMARY | 2024-09-09 08:48 | XMS_ITS | Clinical Summary ---
Author Organization [facility] Address [address] [place] [address] Care Team Providers Care Director Of Cardiac Rehabilitation Name Role Phone Aleks Levine MD Primary Care Provider [phone] Allergies No known active allergies Medications atorvastatin [...] collateral ligament of left wri st 12/13/2022 Encounters Date Type Department Care Team Description 09/06/2024 10:07 AM CDT - 09/06/2024 11:59 PM CDT Hospital Encounter [facility] [address] [place] [address] Luis Healy MD Primary osteoarthritis of left hip (Primary Dx); Left hip pain Discharge Disposition: Discharge to home or self care 09/04/2024 8:00 AM CDT Office Visit [facility] Orthopaedic Surgery [address] [facility] 2[address] [place] [address] Jackie Humphries PA Left hip pain (Primary Dx); Primary osteoarthritis of left hip 09/04/2024 7:30 AM CDT Ancillary Procedure Radiology - [address] [place] [address] [address] [place] [address] Left hip pain from Last 3 Months Immunizations Immunization Administration Dates Next Due Influenza, Quadrivalent, Spl it, Preservative Free, Intramuscular 12/04/2017 Influenza, Trivalent, IM (MDV) 04/12/2017 Pneumococcal Polysaccharide PPV23 08/21/2018 Tdap 10/20/2014 Surgical History Surgery Date Site/Laterality Comments CARPAL TUNNEL RELEASE 03/27/2017 - 03/26/2018 Bilateral SHOULDER OPEN ROTATOR CUFF REPAIR 03/27/2012 - 3 Right TONSILLECTOMY as a child HERNIA REPAIR as a child FL FLUORO GUIDED INJECTION H IP LEFT 09/06/2024 Left Medical History Medical History Date Comments Cataract [...] on file Legal 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 Gender Identity Not on file Sexual Orientation Not on file Obstetrics History Last Filed Vital Signs Vital Sign Reading Time Taken Comments Blood Pressure 149/89 09/06/2024 11:00 AM CDT Pulse 88 09/06/2024 11:00 AM CDT Temperature 36.2 C (97.2 F) 03/07/2023 9:31 AM VENEER JOINTER OFFBEARER Respiratory Rate 16 09/06/2024 11:00 AM CDT Oxygen Saturation 95% 09/06/2024 11:00 AM CDT Inhaled Oxygen Concentration - - Weight 90.7 kg (200 lb) 09/06/2024 10:17 AM CDT Height 182.9 cm (6') 09/06/2024 10:17 AM CDT Body Mass Index 27.12 09/06/2024 10:17 AM CDT Plan of Treatment Health Maintenance Due Date Last Done Comments Colon Cancer Screening-Colonoscopy 1952 Depression Screening 1952 Hepatitis C Screening 1952 Hepatitis B Screening 1970 Zoster Vaccine (1 of 2) 2002 Abdominal Aortic Aneurysm (AAA) Screen 2017 Well Visit 65+ 2017 Pneumococcal vaccine 65+ (2 of 2 - PCV) 08/22/2019 0 08/21/2018 DTaP/Tdap/Td Vaccine (2 - Td or Tdap) 10/20/2024 Influenza Vaccine (Season Ended) 2024 12/05/19, 04/12/2017 Fall Risk Assessment 09/06/2025 09/06/2024 Medical Devices Implanted Type Area French Drawer Device Identifier Shelf Expiration Date Model / Serial / Lot [employer] Internalbrace Kit Hand Wrist Set Implant Ligament Augmentation Ar-8978-Cp - [id number] Implanted:Qty: 1 on 03/07/2023 by Pet, Kevon Nathan MD at [facility] [place] [facility] [employer] [id number] 10/25/2027 AR-8978-C P / / [id number] Procedures Procedure Name Priority Date/Time Associated Diagnosis [...] Result from Last 3 Mon[place] [address] [facility] [place] [address] Care Teams Director Of Cardiac Rehabilitation Relationship Specialty Start Date End Date Aleks Levine MD [address] [place] [address] PCP - General 08/07/14
--- OUTSIDE RECORDS SUMMARY | 2024-09-09 08:48 | XMS_ITS | Encounter Summary ---
Author Organization [facility] Address [address] [place] [address] Care Team Providers Care Corrective And Manual Arts Therapist Name Role Phone Unavailable Primary Care Provider Unavailabl e Encounter Details Date Type Department Care Team (Late st Contact Info) Description 05/16/2024 Lab Requisition [facility] - DermPath Lab [address] [facility] [facility] [address] [place] [address] Gagan Morrison MD [facility] DERMATOLOGY [address] [place] [phone] Neoplasm of uncertain behavior of skin Social History Tobacco Use Types Packs/Day Years Used Date Smoking Tobacco: Former Sex and Gender Information Value Date Recorded Sex Assigned at Not on file Legal Sex Male 5:51 AM PRIVATE EQUITY ANALYST Gender Identity Not on file Sexual Orientation Not on file documented as of this encounter Plan of Treatment Not on file documented as of this encounter Procedures Procedure Name Priority Date/Time Associated Diagnosis Comments DERMATOPATHOLOGY Routine 05/16/2024 12:0 0 AM PRIVATE EQUITY ANALYST Neoplasm of uncertain behavior of skin documented in this encounter Results * DERMATOPATHOLOGY (05/16/2024 12:00 AM PRIVATE EQUITY ANALYST) Case Report Dermatopathology Report Case: [id number] Authorizing Provider: Gagan Morrison MD Collected: 05/16/2024 12:00 AM Ordering Location: [facility] - Received: 05/17/2024 01:58 PM DermPath Lab Pathologist: Luann Joshua MD Specimen: Skin, left dorsal nose 1:26 PM PRIVATE EQUITY ANALYST DERMATOPATHOLOGY LABORATORY Final Diagnosis Specimen A. SKIN, left dorsal nose: BASAL CELL CARCINOMA, INFILTRATIVE PATTERN (C44.311) 1:26 PM [facility] DERMATOPATHOLOGY LABORATORY at [address] PRIVATE EQUITY ANALYST Clinical History Neoplasm of Uncertain Behavior vs BCC 1:26 PM [facility] DERMATOPATHOLOGY LABORATORY Gross Description Specimen A: Received is one formalin filled container labeled with the patient's name and designated left dorsal nose. The specimen consists of a shave biopsy measuring 6x6x1 mm. Jar 0. 1:26 PM [facility] DERMATOPATHOLOGY LABORATORY Microscopic Description Specimen A. SKIN, left dorsal nose: Within the dermis there are nodular aggregates of basaloid cells associated with fibromyxoid stroma and epithelial-stromal clefts. At the advancing margin of the neoplasm, there are smaller angulated nests that infiltrate the dermis. 1:26 PM [facility] DERMATOPATHOLOGY LABORATORY Disclaimer An external and internal positive and negative controls are appropriate for the histochemical, immunohistochemical and immunofluorescence stain(s) in this case (if any), except where stated explicitly. The performance characteristics of the stain(s) cited in this report were developed and its performance characteristic determined by the Dermatopathology Laboratory at [facility], directed by Dr. Lizeth Palmer. These tests need not be, and therefore are not, approved by the [place] Food and Drug Administration. The tests are used for clinical purposes. Billing Codes Specimen Charges Stain Charges 17323 1 1:26 PM [facility] DERMATOPATHOLOGY LABORATORY Embedded Images 1:26 PM [facility] DERMATOPATHOLOGY LABORATORY Pathology/Cytolog y TISSUE SPECIMEN FROM SKIN / Unknown 05/16/2024 05/17/2024 1:58 PM [facility] us Gagan Morrison MD LAB - PATHOLOGY/CYTOLOGY CHIDI BURTON Final Result DERMATOPATHOLOGY LABORATORY [facility] - Department of Dermatology [address] [place] [address], [facility] [phone] documented in this encounter Visit Diagnoses Diagnosis Neoplasm of uncertain behavior of skin documented in this encounter
== END 2024-09-09 08:37 | disposition home or self-care (01) ==
LOC: ANHIMG 08:38
PROVIDERS: PCP Internal Medicine; Visit Provider Orthopaedic Surgery
DX: M54.16 Radiculopathy, lumbar region (principal); M51.26 Other intervertebral disc displacement, lumbar region; M51.369 Other intervertebral disc degeneration, lumbar region without mention of lumbar back pain or lower extremity pain
CPT/HCPCS: 72148

== ENCOUNTER 2024-12-05 08:49 | Outpatient (CLI) | payer MEDICARE, SELFPAY ==
--- OUTSIDE RECORDS SUMMARY | 2008-10-14 05:15 | XMS_ITS | Continuity of Care Document ---
Author Organization [facility] Address [address] [place] [address] [address] [place] [address] Phone Care Team Providers Care Restaurant Maintenance Technician Name Role Phone Johansen OD, Hao Unavailable Unavailable Procedures Procedure Date Visual Field Examination(s) Advance Directives Directive Yes / No Effective Date File Name No Information Encounters Encounter Description Practice Location Reason(s) For Visit Diagnoses Date Provider Providers Copied on Encounter [facility], [id number] [place] [address] [address], [place], [place], [id number], tel:[phone] [facility] (formerly [facility])[3] No Information 1-200 9 Johansen OD Hao. [facility] [address] [address], [place], [place], [facility], . tel:[phone] Referring Provider: Hao Hi, [address], [place], [place], [facility]. tel:[phone] Family History Family Member Type Diagnosis Age At Onset No Information Payers Payer name Insurance type Covered democrat ID Authoriza tion(s) No Information Social History Type Description Quantity Date Captured Comments Sex Male Smoking Status No Information Chief Complaint And Reason For Visit No Information Reason For Referral Reason For Referral No Information History Of Present Illness Encounter Date Complaint History Of Prese nt Illness No Information Functional Status Date Functional Assessmen t No Information Instructions Date Instruction Additional Infor mation No Information Assessments Type Assessment Date No Information Patient Care Teams Name Effective Dates (start - stop) Status Members No Information
--- OUTSIDE RECORDS SUMMARY | 2024-12-05 09:19 | XMS_ITS | Clinical Summary ---
Author Organization [facility] [employer] [facility] Address [address] [place] [address] Care Team Providers Care Paid Search Marketing Strategist Name Role Phone Aleks Levine MD Primary Care Provider [phone] Allergies No known active allergies Medications atorvastatin (LIPITOR) 10 mg tablet TK 1 T PO Q DAY 9 Active losartan (COZAAR) 25 mg tablet Take 1 tablet (25 mg total) by mouth daily 3 Active testosterone cypionate (DEPO-TESTOTERO NE) 200 mg/mL injection 1 mL (200 mg total) once a week Monday 2 Active glucosamine-cho nd-msm-vit C-Mn 500-400-166.6 mg tabletIndicatio ns:For supplement Take by mouth every morning Active mv-min/folic/K1 /lycopen/lutein (CENTRUM SILVER MEN ORAL)Indication s:For supplement Take by mouth every morning Active oxyCODONE (ROXICODONE) 5 mg immediate release tabletIndicatio ns:Pain Take 1 tablet (5 mg total) by mouth every 6 (six) hours as needed for pain 12 tablet 3 Active Additional Information Patient not taking.Reported on 03/23/2023 gabapentin (NEURONTIN) 300 mg capsule Take 1 capsule (300 mg total) by mouth 3 (three) times a day 90 capsule 11 5 11/02/[address] (VOLTAREN) 75 mg EC tablet Take 1 tablet (75 mg total) by mouth 2 (two) times a day 60 tablet 11 5 11/02/19 26 Active Active Problems Problem Noted Date Diagnosed Date Injury of collateral ligament of finger 03/07/20 23 Injury of radial collateral ligament of left wri st 12/13/2022 Encounters Date Type Department Care Team Description 11/01/2024 12:30 PM CDT [facility] [address] [place] [address] Aneesh Healy PA Degeneration of intervertebral disc of lumbar region with discogenic back pain and lower extremity pain (Primary Dx); Back pain at L4-L5 level 11/01/2024 11:59 AM CDT - 11/01/2024 11:59 PM CDT Hospital Encounter [facility] [address] [place] [phone] Low back pain, non-specific Discharge Disposition: Discharge to home or self care 10/28/2024 [facility] [facility] [address] [facility] [address] [place] [address] Aneesh Healy PA Low back pain, non-specific (Primary Dx) 10/15/2024 Telephone [facility] Medicine Scheduling [address] [place] [address] Leslie Sloan 09/06/2024 10:07 AM CDT - 09/06/2024 11:59 PM CDT Hospital Encounter [facility] [address] [place] [address] Luis Healy MD Primary osteoarthritis of left hip (Primary Dx); Left hip pain Discharge Disposition: Discharge to home or self care 09/04/2024 8:00 AM CDT Office Visit [facility] Medicine Orthopaedic Surgery [address] [place] [phone] Jackie Humphries PA Left hip pain (Primary Dx); Primary osteoarthritis of left hip 09/04/2024 7:30 AM CDT Ancillary Procedure Radiology - [address] [place] [address] Left hip pain from Last 3 Months [...] Smoking Tobacco: Former Cigarettes 0.3 28 1 - 2002 Smokeless Tobacco: Never AUDIT-C Answer Date Recorded Q1: How often do you have a drink containing alcohol? 4 or more times a week 11/01/2024 Q2: How many drinks containi ng alcohol do you have on a typical day when you are drinking? 3 or 4 Q3: How often do you have si x or more drinks on one occasion? Never 11/01/2024 Personal Safety Answer Date Recorded Have you ever been in or are you currently in a harmful physical or emotional relationship or is someone making you feel afraid or unsafe? 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 Gender Identity Not on file Sexual Orientation Not on file Obstetrics History Last Filed Vital Signs Vital Sign Reading Time Taken Comments Blood Pressure 149/89 09/06/2024 11:00 AM CDT Pulse 88 09/06/2024 11:00 AM CDT Temperature 36.2 C (97.2 F) 03/07/2023 9:31 AM TOBACCO WAREHOUSE MANAGER Respiratory Rate 16 09/06/2024 11:00 AM CDT Oxygen Saturation 95% 09/06/2024 11:00 AM CDT Inhaled Oxygen Concentration - - Weight 87.4 kg (192 lb 9.6 oz) 11/01/2024 12:34 PM CDT Height 182.9 cm (6') 11/01/2024 12:34 PM CDT Body Mass Index 26.12 11/01/2024 12:34 PM CDT Plan of Treatment Health Maintenance Due Date Last Done Comments Colon Cancer Screening-Colonoscopy 1950 Depression Screening 1950 Hepatitis C Screening 1952 Hepatitis B Screening 1970 Zoster Vaccine (1 of 2) 2002 Abdominal Aortic Aneurysm (AAA) Screen 2017 Well Visit 65+ 2017 Pneumococcal vaccine 65+ (2 of 2 - PCV) 08/22/2019 0 08/21/2018 DTaP/Tdap/Td Vaccine (2 - Td or Tdap) 10/20/2024 Influenza Vaccine (#1) 2024 12/04/2017, 2017 Fall Risk Assessment 09/06/2025 09/06/2024 Medical Devices Implanted Type Area Precipitator Supervisor Device Identifier Shelf Expiration Date Model / Serial / Lot [employer] Internalbrace Kit Hand Wrist Set Implant Ligament Augmentation Ar-8978-Cp - [id number] Implanted:Qty: 1 on 03/07/2023 by Pet, Kevon Nathan MD at [facility] [employer] [id number] 10/25/2027 AR-8978-C P / / [id number] Procedures Procedure Name Priority Date/Time Associated Diagnosis Comments XR SCOLIOSIS 6 OR MORE VIEWS Schedule Routine, Read Routine (OP Routine) 11/01/2024 12:23 PM CDT Low back pain, non-specific FL FLUORO GUIDED INJECTION HIP LEFT Schedule Routine, Read Routine (OP Routine) 09/06/2024 10:58 AM CDT Left hip pain Primary osteoarthritis of left hip XR HIP LEFT W PELVIS 2 OR 3 VIEWS Schedule Routine, Read Routine (OP Routine) 09/04/2024 8:10 AM CDT Left hip pain from Last 3 Months Results * XR Scoliosis 6 or More Views (11/01/2024 12:23 PM CDT) Anatomical Region Laterality Modality Spine N/A Computed Radiogr aphy 11/01/2024 4:16 PM CDT Impressions 11/01/2024 4:25 PM CDT 1. Multisegment lumbar degenerative disc disease, moderate at L5-S1, with lumbar facet arthropathy. Dictated by: Tyler Aquino MD The radiology attending physician has personally reviewed this study, and had reviewed and/or edited this written report and agrees with it. Electronically signed by: Marlo Headley M.D. Narrative 11/01/2024 4:25 PM CDT EXAMINATION: XR SCOLIOSIS 6 OR MORE VIEWS HISTORY: Lower back pain FINDINGS: 8 radiographs of the spine are submitted. Comparison is made to cervical spine radiographs dated 06/01/2022. Positive sagittal imbalance. No coronal imbalance. No pelvic obliquity. Hypomobility of the lumbar spine. No listhesis. No acute vertebral body compression fracture. There is mild L4-L5 and moderate at L5-S1 degenerative disc disease. Moderate degenerative disc disease at C6-C7. Lumbar facet arthropathy. Atherosclerotic calcifications. Procedure Note Marlo Headley MD - 11/01/2024 EXAMINATION: XR SCOLIOSIS 6 OR MORE VIEWS HISTORY: Lower back pain FINDINGS: 8 radiographs of the spine are submitted. Comparison is made to cervical spine radiographs dated 06/01/2022. Positive sagittal imbalance. No coronal imbalance. No pelvic obliquity. Hypomobility of the lumbar spine. No listhesis. No acute vertebral body compression fracture. There is mild L4-L5 and moderate at L5-S1 degenerative disc disease. Moderate degenerative disc disease at C6-C7. Lumbar facet arthropathy. Atherosclerotic calcifications. IMPRESSION: 1. Multisegment lumbar degenerative disc disease, moderate at L5-S1, with lumbar facet arthropathy. Dictated by: Tyler Aquino MD The radiology attending physician has personally reviewed this study, and had reviewed and/or edited this written report and agrees with it. Electronically signed by: Marlo Headley M.D. Aneesh CRAWFORD IMG XR PROCEDURES Fin al Result * FL Fluoro Guided Injection Hip Left (09/06/2024 10:58 AM CDT) Narrative RAD_PACS_BJ - 09/06/2024 10:58 AM CDT The images [...] Result from Last 3 Months Insurance MEDICARE [facility]AR [facility] MEDICARE Care Teams Paid Search Marketing Strategist Relationship Specialty Start Date End Date Aleks Levine MD [address] [place] [address] [facility] - General 08/07/14
[2024-12-05 19:20] LABS: Hematocrit 49.7 % (42.0-52.0); Hemoglobin 16.6 g/dL (14.0-18.0); Immature Granulocyte Percent A 0.3 % (0-0.5); Lymphocytes Absolute Auto 2.37 K/mm3 (0.9-3.2); Mean Corpuscular HGB Conc 33.4 g/dl (32-36); Mean Corpuscular Hemoglobin 32.3 pg (26-34); Mean Corpuscular Volume 96.7 fl (80-100); Nucleated Red Blood Cells Absolute Auto 0.000 K/mm3 (0.0-0.012); Nucleated Red Blood Cells Perc 0.0 % (0.0-0.2); Platelet Count Result 190 k/mm3 (150-375); Red Blood Count 5.14 M/mm3 (4.6-6.20); White Blood Count 7.8 K/mm3 (4.5-10.0)
[2024-12-05 19:39] LABS: Alanine Aminotransferase 52 U/L (6-50); Albumin Level 4.4 g/dL (3.5-5.1); Alkaline Phosphatase 49 U/L (38-126); Anion Gap 8 mmol/L (4-12); Aspartate Amino Transferase 45 U/L (17-59); Bilirubin,Total 0.9 mg/dL (0.2-1.3); Blood Urea Nitrogen 17 mg/dL (9-20); Calcium 9.2 mg/dL (8.4-10.2); Carbon Dioxide 31 mmol/L (22-30); Chloride 100 mmol/L (98-107); Estimated Glomerular Filt Rate > 60; Glucose 102 mg/dL (65-110); Potassium 4.0 mmol/L (3.4-5.0); Sodium 139 mmol/L (137-145); Total Protein 7.3 g/dL (6.3-8.2)
[2024-12-05 20:15] LABS: Prostate Specific Antigen 1.7 ng/mL (< OR = 4.0)
[2024-12-05 20:32] LABS: Hemoglobin A1C 6.0 % (<5.7)
== END 2024-12-05 08:50 | disposition home or self-care (01) ==
LOC: ANHGOSHLAB 08:50
PROVIDERS: PCP Internal Medicine; Visit Provider Internal Medicine
DX: Z12.5 Encounter for screening for malignant neoplasm of prostate (principal); E29.1 Testicular hypofunction; R73.9 Hyperglycemia, unspecified; Z79.890 Hormone replacement therapy
CPT/HCPCS: 36415; 80053; 83036; 84153; 85025; G0103

== ENCOUNTER 2025-01-09 08:20 | Outpatient (CLI) | payer MEDICARE, SELFPAY ==
--- OUTSIDE RECORDS SUMMARY | 2008-10-14 05:15 | XMS_ITS | Continuity of Care Document ---
Author Organization [facility] Address [address] [place] [address] [address] [place] [address] Phone Care Team Providers Care Toe Laster Name Role Phone Johansen OD, Hao Unavailable Unavailable Procedures Procedure Date Visual Field Examination(s) Advance Directives Directive Yes / No Effective Date File Name No Information Encounters Encounter Description Practice Location Reason(s) For Visit Diagnoses Date Provider Providers Copied on Encounter [facility], [id number] [place] [address] [address], [place], [place], [id number], tel:[phone] [facility] No Information 1-200 9 Johansen OD Hao. [facility] [address] [address], [place], [place], [facility], . tel:[phone] Referring Provider: Hao Hi, [address] [facility] [address], [place], [place], [facility]. tel:[phone] Family History Family Member Type Diagnosis Age At Onset No Information Payers Payer name Insurance type Covered libertarian ID Authoriza tion(s) No Information Social History [...]
--- NOTE | ~2025-01-09 | US_ITS ---
ULTRASOUND ABDOMEN LIMITED (RIGHT UPPER QUADRANT) Clinical History: R74.8 - Abnormal levels of other serum enzymes Comparison: None Technique: Right upper quadrant sonography Findings: Liver: Enlarged. Echogenic. Nodular contour. No intrahepatic biliary ductal dilatation. Normal hepatopedal flow main portal vein. Common Duct: Normal caliber. 4 mm. Gallbladder: No stones. No wall thickening. No pericholecystic fluid. Pancreas: Unremarkable. IMPRESSION: 1. No acute findings. 2. Hepatomegaly, with steatosis and/or hepatocellular disease. Early cirrhosis not excluded. Reviewed, dictated and finalized at location R.
--- OUTSIDE RECORDS SUMMARY | 2025-01-09 08:30 | XMS_ITS | Clinical Summary ---
Author Organization [facility] [employer] Address [address] [place] [address] Care Team Providers Care Residential Designer Name Role Phone Unavailable Primary Care Provider Unavailabl e Source Comments [facility] [employer],non-owned Affiliates and Associated Physician Practices is amultiple site organization consisting of ambulatory clinics and hospital sitesin [place], [place] and [place]. This disclosure is being madepursuant to the Care Everywhere program and may not contain all information available regarding this patient. Last updated 17.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
--- OUTSIDE RECORDS SUMMARY | 2025-01-09 08:30 | XMS_ITS | Clinical Summary ---
Author Organization [facility] [employer] [facility] Address [address] [place] [address] Care Team Providers Care Traverse Rod Assembler Name Role Phone Aleks Levine MD Primary Care Provider [phone] Allergies No known active allergies Medications atorvastatin [...] Description 11/01/2024 12:30 PM CDT [facility] [address] [facility] [address] [place] [phone] Aneesh Healy PA Degeneration of intervertebral disc of lumbar region with discogenic back pain and lower extremity pain (Primary Dx); Back pain at L4-L5 level 11/01/2024 11:59 AM CDT - 11/01/2024 11:59 PM CDT Hospital Encounter [facility] [address] [place] [address] Low back pain, non-specific Discharge Disposition: Discharge to home or self care 10/28/2024 [facility] [address] [facility] [address] [place] [address] Aneesh Healy PA Low back pain, non-specific (Primary Dx) 10/15/2024 [facility] [address] [place] [address] Leslie Sloan from Last 3 Months Immunizations Immunization Administration [...] on file 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 Gender Identity Not on file Sexual Orientation Not on file Obstetrics History Last Filed Vital Signs Vital Sign Reading Time Taken Comments Blood Pressure 149/89 09/06/2024 11:00 AM CDT Pulse 88 09/06/2024 11:00 AM CDT Temperature 36.2 C (97.2 F) 03/07/2023 9:31 AM WIRE STEWARD Respiratory Rate 16 09/06/2024 11:00 AM CDT [...] 09/06/2025 09/06/2024 Medical Devices Implanted Type Area Fire Alarm Technician Device Identifier Shelf Expiration Date Model / Serial / Lot [employer] Internalbrace Kit Hand Wrist Set Implant Ligament Augmentation Ar-8978-Cp - [id number] Implanted:Qty: 1 on 03/07/2023 by Kevon Ohara MD at [facility] [employer] [id number] 10/25/2027 AR-8978-C P / / [id number] Procedures Procedure Name Priority Date/Time Associated Diagnosis Comments XR SCOLIOSIS 6 OR MORE VIEWS Schedule Routine, Read Routine (OP Routine) 11/01/2024 12:23 PM CDT Low back pain, non-specific from Last 3 Months Results * XR [...] CRAWFORD IMG XR PROCEDURES Fin al Result from Last 3 Months Insurance MEDICARE [facility] AARP MEDICARE Care Teams Traverse Rod Assembler Relationship Specialty Start Date End Date Aleks Levine MD [address] [place] [id number] PCP - General 08/07/14
--- OUTSIDE RECORDS SUMMARY | 2025-01-09 08:30 | XMS_ITS | Encounter Summary ---
Author Organization [facility] Address [address] [place] [address] Care Team Providers Care Nurse'S Aides Teacher Name Role Phone Unavailable Primary Care Provider Unavailabl e Encounter Details Date Type Department Care Team (Late st Contact Info) Description 05/16/2024 Lab Requisition [facility] - DermPath Lab [address] [place] [address] Gagan Morrison MD [facility] DERMATOLOGY [address] [place] [phone] Neoplasm of uncertain behavior of skin Social History Tobacco Use Types Packs/Day Years Used Date Smoking Tobacco: Former Sex and Gender Information Value Date Recorded Sex Assigned at Not on file Legal Sex Male 5:51 AM DIRECTOR DESIGN Gender Identity Not on file Sexual Orientation Not on file documented as of this encounter Plan of Treatment Not on file documented as of this encounter Procedures Procedure Name Priority Date/Time Associated Diagnosis Comments DERMATOPATHOLOGY Routine 05/16/2024 12:0 0 AM DIRECTOR DESIGN Neoplasm of uncertain behavior of skin documented in this encounter Results * DERMATOPATHOLOGY (05/16/2024 12:00 AM DIRECTOR DESIGN) Case Report Dermatopathology Report Case: [id number] Authorizing Provider: Gagan Mrorison MD Collected: 05/16/2024 12:00 AM Ordering Location: [facility] - Received: 05/17/2024 01:58 PM DermPath Lab Pathologist: Luann Joshua MD Specimen: Skin, left dorsal nose 1:26 PM DIRECTOR DESIGN DERMATOPATHOLOGY LABORATORY Final Diagnosis Specimen A. SKIN, left dorsal nose: BASAL CELL CARCINOMA, INFILTRATIVE PATTERN (C44.311) 1:26 PM [facility] DERMATOPATHOLOGY LABORATORY at 1326 DIRECTOR DESIGN Clinical History Neoplasm of Uncertain Behavior vs BCC 1:26 PM [facility] DERMATOPATHOLOGY LABORATORY Gross Description Specimen A: Received is one formalin filled container labeled with the patient's name and designated left dorsal nose. The specimen consists of a shave biopsy measuring 6x6x1 mm. Jar 0. 1:26 PM [facility] DERMATOPATHOLOGY LABORATORY Microscopic Description Specimen A. SKIN, left dorsal nose: Within the dermis there are nodular aggregates of basaloid cells associated with fibromyxoid stroma and epithelial-stromal clefts. At the advancing margin of the neoplasm, there are smaller angulated nests that infiltrate the dermis. 1:26 PM [facility] DERMATOPATHOLOGY LABORATORY Disclaimer An external and internal positive and negative controls are appropriate for the histochemical, immunohistochemical and immunofluorescence stain(s) in this case (if any), except where stated explicitly. The performance characteristics of the stain(s) cited in this report were developed and its performance characteristic determined by the Dermatopathology Laboratory at [facility], directed by Dr. Lizeth Palmer. These tests need not be, and therefore are not, approved by the [place] Food and Drug Administration. The tests are used for clinical purposes. Billing Codes Specimen Charges Stain Charges 56762 1 1:26 PM [facility] DERMATOPATHOLOGY LABORATORY Embedded Images 1:26 PM [facility] DERMATOPATHOLOGY LABORATORY Pathology/Cytolog y TISSUE SPECIMEN FROM SKIN / Unknown 05/16/2024 05/17/2024 1:58 PM [facility] us Gagan Morrison MD LAB - PATHOLOGY/CYTOLOGY CHIDI BURTON Final Result DERMATOPATHOLOGY LABORATORY [facility] - Department of Dermatology [address] [place] [address], [facility] [phone] documented in this encounter Visit Diagnoses Diagnosis Neoplasm of uncertain behavior of skin documented in this encounter
== END 2025-01-09 08:21 | disposition home or self-care (01) ==
PROVIDERS: PCP Internal Medicine; Visit Provider Internal Medicine
DX: R74.8 Abnormal levels of other serum enzymes (principal); R16.0 Hepatomegaly, not elsewhere classified
CPT/HCPCS: 76705

== ENCOUNTER 2025-02-27 00:38 | Day surgery (SDC) | payer MEDICARE, SELFPAY ==
[2025-02-05 15:03] VITALS: BMI 26.9
--- OUTSIDE RECORDS SUMMARY | 2025-02-27 00:42 | XMS_ITS | Encounter Summary ---
Author Organization [facility] Address [address] [place] [address] Care Team Providers Care Wax Cutter Name Role Phone Unavailable Primary Care Provider Unavailabl e Encounter Details Date Type Department Care Team (Late Contact Info) Description 05/16/2024 Lab Requisition [facility] - DermPath Lab [address] [place] [phone] Gagan Morrison MD [facility] DERMATOLOGY [address] [place] [phone] Neoplasm of uncertain behavior of skin Social History Tobacco Use Types Packs/Day Years Used Date Smoking Tobacco: Former Sex and Gender Information Value Date Recorded Sex Assigned at Not on file 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 Gender Identity Not on file Sexual Orientation Not on file documented as of this encounter Plan of Treatment Upcoming Encounters Date Type Department Care Team (Late Contact Info) Description 04/11/2025 12:30 PM 1ST GRADE TEACHER [facility] [address] [place] [phone] Krystle Lira, SAFETY ADMIN ASSISTANT-SLEEVE SEPARATOR [address] [place] [address] [place] [phone] 04/11/2025 12:30 PM 1ST GRADE TEACHER Procedure visit [facility] - GI [address] [place] [phone] documented as of this encounter Procedures Procedure Name Priority Date/Time Associated Diagnosis Comments DERMATOPATHOLOGY Routine 05/16/2024 12:0 0 AM 1ST GRADE TEACHER Neoplasm of uncertain behavior of skin documented in this encounter Results * DERMATOPATHOLOGY (05/16/2024 12:00 AM 1ST GRADE TEACHER) Case Report Dermatopathology Report Case: [id number] Authorizing Provider: Gagan Morrison MD Collected: 05/16/2024 12:00 AM Ordering Location: [facility] - Received: 05/17/2024 01:58 PM DermPath Lab Pathologist: Luann Joshua MD Specimen: Skin, left dorsal nose 1:26 PM [facility] DERMATOPATHOLOGY LABORATORY Final Diagnosis Specimen A. SKIN, left dorsal nose: BASAL CELL CARCINOMA, INFILTRATIVE PATTERN (C44.311) 1:26 PM [facility] DERMATOPATHOLOGY LABORATORY at [address] 1ST GRADE TEACHER Clinical History Neoplasm of Uncertain Behavior vs BCC 1:26 PM [facility] DERMATOPATHOLOGY LABORATORY Gross Description Specimen A: Received is one formalin filled container labeled with the patient's name and designated left dorsal nose. The specimen consists of a shave biopsy measuring 6x6x1 mm. Jar 0. 1:26 PM [facility] DERMATOPATHOLOGY LABORATORY Microscopic Description Specimen A. SKIN, left dorsal nose: Within the dermis there are nodular aggregates of basaloid cells associated with fibromyxoid stroma and epithelial-stromal clefts. At the advancing margin of the neoplasm, there are smaller angulated nests that infiltrate the dermis. 1:26 PM [facility] DERMATOPATHOLOGY LABORATORY Disclaimer An external and internal [...] purposes. Billing Codes Specimen Charges Stain Charges 35110 1 1:26 PM [facility] DERMATOPATHOLOGY LABORATORY Embedded Images 1:26 PM 1ST GRADE TEACHER DERMATOPATHOLOGY LABORATORY Pathology/Cytolog y TISSUE SPECIMEN FROM SKIN / Unknown 05/16/2024 05/17/2024 1:58 PM 1ST GRADE TEACHER Gagan Morrison MD LAB - PATHOLOGY/CYTOLOGY [place] [facility]AL Final Result DERMATOPATHOLOGY LABORATORY [facility] - Department of Dermatology [facility] Specialized Medicine [address] [place] [address], [address] [phone] documented in this encounter Visit Diagnoses Diagnosis Neoplasm of uncertain behavior of skin documented in this encounter
--- OUTSIDE RECORDS SUMMARY | 2025-02-27 00:42 | XMS_ITS | Clinical Summary ---
Author Organization [facility] Address [address] [facility] [place] [address] Care Team Providers Care Real Estate Underwriter Name Role Phone Unavailable Primary Care Provider Unavailabl e Source Comments [facility],non-owned Affiliates and Associated Physician Practices is amultiple site organization consisting of ambulatory clinics and hospital sitesin [place], [place], [place] and [place]. This disclosure is being madepursuant to the Care Everywhere program and may not contain all information available regarding this patient. Last updated 17.[facility] Allergies No known active allergies Medications * [...] Encounters Date Type Department Care Team Description 02/25/2025 Orders Only [facility] - [facility] [address] [facility], [place] [address] Krystle Lira, HOOP EXPANDER-EGG PROCESSOR Hepatic cirrhosis, unspecified hepatic cirrhosis type, unspecified whether ascites present (HCC) 01/17/2025 Travel from Last 3 Months Social History Tobacco Use Types Packs/Day Years Used Date Smoking Tobacco: Former Sex and Gender Information Value Date Recorded Sex Assigned at Not on file Legal Sex Male 5:51 AM OUTDOOR GUIDE Gender Identity Not on file Sexual Orientation [...] Mass Index - - Plan of Treatment Upcoming Encounters Date Type Department Care Team (Late st Contact Info) Description 04/11/2025 12:30 PM OUTDOOR GUIDE Office Visit [facility] - GI [address] [place] [address], [place] [address] Krystle Lira, HOOP EXPANDER-EGG PROCESSOR [address] [place] [address] [place] [phone] 04/11/2025 12:30 PM OUTDOOR GUIDE Procedure visit [facility] - GI [address] [place] [phone] Health Maintenance Due Date Last Done Comments [...] DEPRESSION SCREENING 03/27/2024 COVID-19 VACCINE (1 - 2024-2 6 season) 2024 INFLUENZA VACCINE (#1) 2024 Respiratory [...] to complete this topic Insurance MEDICARE MEDICARE [facility]
--- OUTSIDE RECORDS SUMMARY | 2025-02-27 00:42 | XMS_ITS | Clinical Summary ---
Author Organization [facility] Address [address] [place] [address] Care Team Providers Care Pattern Vault Clerk Name Role Phone Aleks Levine MD Primary Care Provider [phone] Allergies No known active allergies Medications atorvastatin [...] 60 tablet 11 5 11/02/19 26 Active Hospital, Clinic, or Other Facility Administered Medication Ordered Dose Route Frequency Start Date End Date Status triamcinolone (KENALOG) 40 mg/mL injection 32 mgIndications:Injury of collateral ligament of finger of left hand, subsequent encounter 32 mg intra-artic Once 02/25/2025 02/25/2025 Ended BUPivacaine HCl (MARCAINE) 0.5 % (5 mg/mL) injection 1 mgIndications:Injury of collateral ligament of finger of left hand, subsequent encounter 1 mg OTHER Once 02/25/2025 02/25/2025 Ended Active Problems Problem Noted Date Diagnosed Date Injury of collateral ligament of finger 03/07/20 23 Injury of radial collateral ligament of left wri st 12/13/2022 Encounters Date Type Department Care Team Description 02/25/2025 11:45 AM MEAT PULLER Office Visit [facility] Medicine Surgery [address] [place] [address] Medical Office Building [address] [place] [phone] Kevon Ohara MD Injury of collateral ligament of finger of left hand, subsequent encounter (Primary Dx) 01/22/2025 11:03 AM CDT - 01/22/2025 11:59 PM CDT Hospital Encounter [facility] [address] [place] [address] Kevon Ohara MD Injury of collateral ligament of finger of left hand, subsequent encounter Discharge Disposition: Discharge to home or self care 01/22/2025 11:00 AM CDT Office Visit [facility] Medicine Surgery [address] [place] [address] Advanced Medicine 6th [place] [address] [place] [address] Kevon Ohara MD Injury of collateral ligament of finger of left hand, subsequent encounter (Primary Dx) from Last 3 Months Immunizations Immunization Administration [...] Smoking Tobacco: Former Cigarettes 0.3 28 1 5 - 2002 Smokeless Tobacco: Never AUDIT-C Answer [...] on file Legal Sex Male 3:39 AM MEAT PULLER Gender Identity Not on file Sexual Orientation Not on file Last Filed Vital Signs Vital Sign Reading Time Taken Comments Blood Pressure 149/89 09/06/2024 11:00 AM CDT Pulse 88 09/06/2024 11:00 AM CDT Temperature 36.2 C (97.2 F) 03/07/2023 9:31 AM MEAT PULLER Respiratory Rate 16 09/06/2024 11:00 AM CDT [...] (1 of 2) 2002 Abdominal Aortic Aneurysm (A AA) Screen 2017 Well Visit 65+ 2017 Influenza Vaccine (#1) 2024 , 12/22/2022, 01/25/2021, Additional history exists Fall Risk Assessment 09/06/2025 09/06/2024 DTaP/Tdap/Td Vaccine (3 - Td or Tdap) 02/12/2033 02/12/2023, 10/20/2014, 12/22/2004 Pneumococcal vaccine 65+ Completed 08/21/2018, 02/24 Medical Devices Implanted Type Area Certified Marine Mechanic Device Identifier Shelf Expiration Date Model / Serial / Lot [employer] Internalbrace Kit Hand Wrist Set Implant Ligament Augmentation Ar-8978-Cp - [id number] Implanted:Qty: 1 on 03/07/2023 by Kevon Ohara MD at [facility] [employer] [id number] 10/25/2027 AR-8978-C P / / [id number] Procedures Procedure Name Priority Date/Time Associated Diagnosis Comments XR HAND LEFT 3 OR MORE VIEWS Schedule Routine, Read Routine (OP Routine) 01/22/2025 11:10 AM CDT Injury of collateral ligament of finger of left hand, subsequent encounter from Last 3 Months Results * XR Hand Left 3 or More Views (01/22/2025 11:10 AM CDT) Anatomical Region Laterality Modality Upper Extremities, Hand Left Computed Radiography 01/22/2025 11:4 6 AM CDT Impressions 01/22/2025 11:46 AM CDT 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 Electronically signed by: Delta Abdi M.D. Narrative 01/22/2025 11:46 AM CDT XR HAND LEFT 3 OR MORE VIEWS HISTORY: Left hand pain. History of long finger collateral ligament repair. FINDINGS: 3 views of the left hand are obtained and compared with 05/01/2023. There is no fracture or dislocation. There is unchanged moderate to severe triscaphe osteoarthritis. Mild osteoarthritis of the interphalangeal joints. Unchanged collateral ligament reconstructive changes at the long finger metacarpophalangeal joint. Alignment is normal. Procedure Note Delta Abdi MD - 01/22/2025 XR HAND LEFT 3 OR MORE VIEWS HISTORY: Left hand pain. History of long finger collateral ligament repair. FINDINGS: 3 views of the left hand are obtained and compared with 05/01/2023. There is no fracture or dislocation. There is unchanged moderate to severe triscaphe osteoarthritis. Mild osteoarthritis of the interphalangeal joints. Unchanged collateral ligament reconstructive changes at the long finger metacarpophalangeal joint. Alignment is normal. 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 Electronically signed by: Delta Abdi M.D. Kevon Ohara MD IMG XR PROCEDURES Final R esult from Last 3 Months Insurance MEDICARE [facility] AAR MEDICARE Care Teams Pattern Vault Clerk Relationship Specialty Start Date End Date Aleks Levine MD [address] [place] [address] PCP - General 08/07/14
--- NOTE | 2025-02-27 07:42 | ECG_ITS ---
Test Date: 2025-02-27 07:54:43 Measurements Intervals [place] Rate: 87 P: 47 VA: 185 QRS: 26 QRSD: 139 T: -3 QT: 382 QTc: 462 Interpretive Statements SINUS RHYTHM WITH VENTRICULAR TRIGEMINY RIGHT BUNDLE BRANCH BLOCK BASELINE ARTIFACT- V1-V3 ABNORMAL ECG No previous ECG available for comparison Electronically Signed On 02-27-2025 08:24:18 MANAGER STRATEGIC by Jay Helton D.O.
--- NOTE | 2025-02-27 07:49 | WPDANESEPPF ---
Anes - Initial Pre Proc Eval Procedure: Operation Date: 02/27/25 08:30 Proposed Procedures p Screening Colonoscopy - Maico Marie MD Date/Time: 02/27/25 07:49 Surgeon: Maico Marie MD Pre Op Diagnosis: Personal history of colon polyps, unspecified Patient Data Age: 74 Gender: M Height: 1.83 m Weight: 89.9 kg Allergies Allergy/AdvReac Type Severity Reaction Status Date / Time No Known Allergies Allergy Verified 02/27/25 07:43 Home Medications ?Medication ?Instructions ?Recorded ?Confirmed ?Type needle (disp) 18 G 18 gauge x 1 #100 ea 06/27/23 12/10/24 Rx 1/2 (BD Regular Bevel [place]) syringe with needle 3 mL 25 x 1 #100 ea 06/27/23 12/10/24 Rx 1/2 (BD Luer-Giovanni Syringe) antiarthritic combination no.2 900 900 mg PO DAILY 01/01/24 02/05/25 History mg tablet (glucosamine-chondroitin) Mandibular Device 01/18/24 12/10/24 History multivitamin 1 tablet PO DAILY 05/27/24 02/05/25 History testosterone cypionate 200 mg/mL 100 mg (0.5 mL) IM WEEKLY #10 mL 06/03/24 02/05/25 Rx intramuscular oil losartan 50 mg tablet See Rx Instructions .Route 12/06/24 02/05/25 Rx .COMPLEX #90 tabs hydrochlorothiazide 12.5 mg tablet See Rx Instructions .Route 12/18/24 02/05/25 Rx .COMPLEX #90 tabs amlodipine 2.5 mg tablet 2.5 mg PO DAILY #90 tabs 01/06/25 02/05/25 Rx atorvastatin 10 mg tablet See Rx Instructions .Route 02/04/25 02/05/25 Rx .COMPLEX #90 tabs Patient hx anesthesia problems: none Family hx anesthesia problems: none Results Review: All pre-operative results and documents have been reviewed as part of the pre-operative evaluation. [facility] Past Medical History Medical History Irregular cardiac rhythm Erythrocytosis Essential hypertension Long-term current use of testosterone cypionate Torn rotator cuff Mixed hyperlipidemia Surgical History Surgical History Status post Mohs surgery for basal cell carcinoma History of hand surgery H/O arthroscopy of knee History of repair of rotator cuff History of carpal tunnel release Family History Family History Mother Family history of glaucoma Dementia Father Family history of chronic obstructive pulmonary disease Alzheimer disease Sibling Breast cancer Social History Social History Years smoked: 30 Smoking status: Former smoker Tobacco type: cigarettes Smoking end date: 12/05/02 Alcohol intake: current Drinks per week: 14 Alcohol use details: beer, wine, bourbon Substance use: never Substance use type: does not use Lack of Transportation: No Lack of Food: Never True Current Housing: I Have Housing Concerned About Future Housing: No Difficulty Paying Gas/Electric Bills: No Difficulty Paying for Meds: No Currently Unemployed: No Education: Decline to Answer Difficulty w/ Childcare or Family Care: No Gender identity (if verbalized by the patient): Male Spiritual care concerns: No Anes - Eval Final PreProcedure Day of Procedure 02/27/25 07:49 Patient weight: overweight Heart: regular rate and rhythm Lungs: clear to auscultation Airway: Mallampati scale class II Neurological: alert and oriented Last oral intake: >/= 8 hours ASA classification: III Emergent: no Anesthetic plan: proceed Anesthesia type and monitoring: general GIVS and standard monitoring Results Review: All pre-operative results and documents have been reviewed as part of the pre-operative evaluation. Informed Consent: The patient's anesthetic plan and its attendant risks and benefits were discussed with the patient/family/POA. Questions were solicited and answers provided to the satisfaction of the patient/family/POA.
[2025-02-27 07:51] VITALS: BP 138/76; PULSE 64; RESP 16; TEMP 36.4; O2SAT 99
[2025-02-27] MEDS: LACTATED RINGERS 1,000 ML 150 ML IV CONT (08:01)
--- NOTE | 2025-02-27 08:08 | PM.HPGS ---
History of Present Illness History of Present Illness Consent: Risks, benefits, and alternatives have been discussed and questions answered. Patient agrees to proceed with procedure. Chief complaint: Personal history of colon polyps, unspecified Narrative: Tim Kinney Jr. is a 74 year old male with colon polyp in 2019 Review of Systems Review of Systems: All systems reviewed & are unremarkable except as noted in HPI and below PMFSH Past Medical History Medical History (Updated 02/27/25 @ 08:11 by Maico Marie MD) Colon polyp Irregular cardiac rhythm Erythrocytosis Essential hypertension Long-term current use of testosterone cypionate Torn rotator cuff Mixed hyperlipidemia Surgical History Surgical History Status post Mohs surgery for basal cell carcinoma History of hand surgery H/O arthroscopy of knee History of repair of rotator cuff History of carpal tunnel release Family History Family History Mother Family history of glaucoma Dementia Father Family history of chronic obstructive pulmonary disease Alzheimer disease Sibling Breast cancer Social History Social History Years smoked: 30 Smoking status: Former smoker Tobacco type: cigarettes Smoking end date: 12/05/02 Alcohol intake: current Drinks per week: 14 Alcohol use details: beer, wine, bourbon Substance use: never Substance use type: does not use Lack of Transportation: No Lack of Food: Never True Current Housing: I Have Housing Concerned About Future Housing: No Difficulty Paying Gas/Electric Bills: No Difficulty Paying for Meds: No Currently Unemployed: No Education: Decline to Answer Difficulty w/ Childcare or Family Care: No Gender identity (if verbalized by the patient): Male Spiritual care concerns: No Meds Home Medications and Allergies Home Medications ?Medication ?Instructions ?Recorded ?Confirmed ?Type needle (disp) 18 G 18 gauge x 1 #100 sheree 06/27/23 12/10/24 Rx 1/2 (BD Regular Bevel [place]) syringe with needle 3 mL 25 x 1 #100 sheree 06/27/23 12/10/24 Rx 1/2 (BD Luer-Giovanni Syringe) antiarthritic combination no.2 900 900 mg PO DAILY 10/07/24 12/04/25 History mg tablet (glucosamine-chondroitin) Mandibular Device 01/18/24 12/10/24 History multivitamin 1 tablet PO DAILY 05/27/24 02/27/25 History testosterone cypionate 200 mg/mL 100 mg (0.5 mL) IM WEEKLY #10 mL 06/03/24 02/05/25 Rx intramuscular oil losartan 50 mg tablet See Rx Instructions .Route 12/06/24 02/27/25 Rx .COMPLEX #90 tabs hydrochlorothiazide 12.5 mg tablet See Rx Instructions .Route 12/18/24 02/27/25 Rx .COMPLEX #90 tabs amlodipine 2.5 mg tablet 2.5 mg PO DAILY #90 tabs 01/06/25 02/27/25 Rx atorvastatin 10 mg tablet See Rx Instructions .Route 02/04/25 02/27/25 Rx .COMPLEX #90 tabs Allergies Allergy/AdvReac Type Severity Reaction Status Date / Time No Known Allergies Allergy Verified 02/27/25 07:43 Vital Signs Vital Signs - 24 hr 02/27/25 07:51 Temperature 97.6 F Pulse Rate 64 Respiratory Rate 16 Blood Pressure 138/76 Pulse Oximetry 99 Oxygen Delivery Room Air Exam Const: General: comfortable and no acute distress HENMT: Face/Nose/Sinus: Normal nares present Eyes: General: appearance normal, both eyes and all related structures Neck: Neck: no JVD Resp: Auscultation: clear to auscultation bilaterally Cardio: Rate: regular rate Rhythm: regular rhythm GI: Inspection: non-distended GI Palp: Yes Soft to palpation Skin: General skin exam: normal color Extrem: General: normal to inspection Psych: Mental Status: mental status grossly normal Assessment and Plan Assessment and plan (1) Colon polyp: Code(s): K63.5 - Polyp of colon Status: Acute Assessment and Plan: colonoscopy
[2025-02-27 08:21] VITALS: BP 113/64; PULSE 77; RESP 16; O2SAT 95
[2025-02-27 08:31] VITALS: BP 127/55; PULSE 78; RESP 23; O2SAT 98
[2025-02-27 08:41] VITALS: BP 129/56; PULSE 74; RESP 22; O2SAT 99
== END 2025-02-27 08:51 | disposition home or self-care (01) ==
PROVIDERS: PCP Internal Medicine; Referring Provider Nurse Practitioner; Visit Provider Internal Medicine Gastroenterology
PROC: 0DJD8ZZ Inspection of Lower Intestinal Tract, Via Natural or Artificial Opening Endoscopic (ICD-10-PCS; CPT 45378; principal; 2025-02-27 08:30)
DX: Z12.11 Encounter for screening for malignant neoplasm of colon (principal); K57.30 Diverticulosis of large intestine without perforation or abscess without bleeding; K64.4 Residual hemorrhoidal skin tags; Z86.0100 Personal history of colon polyps, unspecified; Z87.891 Personal history of nicotine dependence
CPT/HCPCS: G0105; 93005; J2704; J7120

== ENCOUNTER 2025-03-06 13:23 | Outpatient (CLI) | payer MEDICARE, SELFPAY ==
[2025-03-08 15:09] LABS: Free Testosterone (Direct) 20.7 pg/mL (6.6-18.1)
== END 2025-03-06 13:24 | disposition home or self-care (01) ==
PROVIDERS: PCP Internal Medicine; Visit Provider Internal Medicine
DX: E29.1 Testicular hypofunction (principal)
CPT/HCPCS: 84402; 84403

== ENCOUNTER 2025-03-24 09:28 | Outpatient (CLI) | payer MEDICARE, SELFPAY ==
--- OUTSIDE RECORDS SUMMARY | 2025-03-24 09:48 | XMS_ITS | Clinical Summary ---
Author Organization [facility] Address [address] [place] [address] Care Team Providers Care Library Cataloging Technician Name Role Phone Aleks Levine MD Primary Care Provider Allergies No known active allergies Medications atorvastatin [...] Department Care Team Description 02/25/2025 11:45 AM BUTTON BRADDER Office Visit [facility] Medicine Surgery [address] [place] [address] Medical Office Building [address] [place] [phone] Kevon Ohara MD Injury of collateral ligament of finger of left hand, subsequent encounter (Primary Dx) 01/22/2025 11:03 AM CDT - 01/22/2025 11:59 PM CDT Hospital Encounter [facility] [address] [place] [address] Kevon Ohara MD Injury of collateral ligament of finger of left hand, subsequent encounter Discharge Disposition: Discharge to home or self care 01/22/2025 11:00 AM CDT Office Visit [facility] Medicine Surgery [address] [place] [address] Advanced Medicine 6th [place] [address] [place] [address] Kevon Ohara MD Injury of collateral ligament [...] on file Legal Sex Male 3:39 AM BUTTON BRADDER Gender Identity Not on file Sexual Orientation Not on file Last Filed Vital Signs Vital Sign Reading Time Taken Comments Blood Pressure 149/89 09/06/2024 11:00 AM CDT Pulse 88 09/06/2024 11:00 AM CDT Temperature 36.2 C (97.2 F) 03/07/2023 9:31 AM BUTTON BRADDER Respiratory Rate 16 09/06/2024 11:00 AM CDT [...] 08/21/2018, 02/24 Medical Devices Implanted Type Area Organizational Effectiveness Consultant Device Identifier Shelf Expiration Date Model / Serial / Lot [employer] Internalbrace Kit Hand Wrist Set Implant Ligament Augmentation Ar-8978-Cp - [id number] Implanted:Qty: 1 on 03/07/2023 by Kevon Ohara MD at [facility] [employer] [id number] 10/25/2027 AR-8978-C P / / [id number] Procedures Procedure Name Priority Date/Time Associated Diagnosis [...] esult from Last 3 Months Insurance MEDICARE [facility] AAR MEDICARE Care Teams Library Cataloging Technician Relationship Specialty Start Date End Date Aleks Levine MD [address] [place] [address] PCP - General 08/07/14
--- OUTSIDE RECORDS SUMMARY | 2025-03-24 09:48 | XMS_ITS | Encounter Summary ---
Author Organization [facility] Address [address] [facility] [place] [address] Care Team Providers Care Laminating Machine Offbearer Name Role Phone Unavailable Primary Care Provider Unavailabl e Encounter Details Date Type Department Care Team (Late Contact Info) Description 05/16/2024 Lab Requisition [facility]Path Lab [address] [place] [phone] Gagan Morrison MD [facility] [address] [place] [phone] Neoplasm of uncertain behavior of skin Social History Tobacco Use Types Packs/Day Years Used Date Smoking Tobacco: Former Sex and Gender Information Value Date Recorded Sex Assigned at Not on file Legal Sex Male 5:51 AM SALON PROFESSIONAL Gender Identity Not on file Sexual Orientation Not on file documented as of this encounter Plan of Treatment Upcoming Encounters Date Type Department Care Team (Late Contact Info) Description 04/11/2025 12:30 PM SALON PROFESSIONAL [facility] [address] [place] [phone] Krystle Lira, POWER CUTTING MACHINE OPERATOR-LOCKMAKER [address] [place] [address] [place] [phone] 04/11/2025 12:30 PM SALON PROFESSIONAL Procedure visit [facility] - GI [address] [place] [phone] documented as of this encounter Procedures Procedure Name Priority Date/Time Associated Diagnosis Comments DERMATOPATHOLOGY Routine 05/16/2024 12:0 0 AM SALON PROFESSIONAL Neoplasm of uncertain behavior of skin documented in this encounter Results * DERMATOPATHOLOGY (05/16/2024 12:00 AM SALON PROFESSIONAL) Case Report Dermatopathology Report Case: [id number] Authorizing Provider: Gagan oMrrison MD Collected: 05/16/2024 12:00 AM Ordering Location: [facility] - Received: 05/17/2024 01:58 PM DermPath Lab Pathologist: Luann Joshua MD Specimen: Skin, left dorsal nose 1:26 PM [facility] DERMATOP[facility]Y [facility]ORATORY Final Diagnosis Specimen A. SKIN, left dorsal nose: BASAL CELL CARCINOMA, INFILTRATIVE PATTERN (C44.311) 1:26 PM [facility] DERMATOPATHOLOGY LABORATORY at [address] SALON PROFESSIONAL Clinical History Neoplasm of Uncertain Behavior vs BCC 1:26 PM [facility] DERMATOPATHOLOGY LABORATORY Gross Description Specimen A: Received is one formalin filled container labeled with the patient's name and designated left dorsal nose. The specimen consists of a shave biopsy measuring 6x6x1 mm. Jar 0. 1:26 PM [facility] DERMATOPATHOLOGY LABORATORY Microscopic Description Specimen A. SKIN, left dorsal nose: Within the dermis there are nodular aggregates of basaloid cells associated with fibromyxoid stroma and epithelial-stromal clefts. At the advancing margin of the neoplasm, there are smaller angulated nests that infiltrate the dermis. 1:26 PM [facility] DERMATOPATHOLOGY LABORATORY Disclaimer An external and internal positive and negative controls are appropriate for the histochemical, immunohistochemical and immunofluorescence stain(s) in this case (if any), except where stated explicitly. The performance characteristics of the stain(s) cited in this report were developed and its performance characteristic determined by the Dermatopathology Laboratory at [facility], directed by Dr. Lizeth Palmer. These tests need not be, and therefore are not, approved by the [place] Food and Drug Administration. The tests are used for clinical purposes. Billing Codes Specimen Charges Stain Charges 18958 1 1:26 PM [facility] DERMATOPATHOLOGY LABORATORY Embedded Images 1:26 PM SALON PROFESSIONAL DERMATOPATHOLOGY LABORATORY Pathology/Cytolog y TISSUE SPECIMEN FROM SKIN / Unknown 05/16/2024 05/17/2024 1:58 PM SALON PROFESSIONAL Gagan Morrison MD LAB - PATHOLOGY/CYTOLOGY [facility] Final Result DERMATOPATHOLOGY LABORATORY [facility] - Department of Dermatology [facility] [address] [place] [address], [address] [phone] documented in this encounter Visit Diagnoses Diagnosis Neoplasm of uncertain behavior of skin documented in this encounter
--- OUTSIDE RECORDS SUMMARY | 2025-03-24 09:48 | XMS_ITS | Clinical Summary ---
Author Organization [facility] [employer] Address [address] [facility] [place] [address] Care Team Providers Care Lead Cargoman Name Role Phone Unavailable Primary Care Provider Unavailabl e Source Comments [facility] [employer],non-owned Affiliates and Associated Physician Practices is amultiple site organization consisting of ambulatory clinics and hospital sitesin [place], [place], [place] and [place]. This disclosure is being madepursuant to the Care Everywhere program and may not contain all information available regarding this patient. Last updated 17.[facility] [employer] Allergies No known active allergies Medications * [...] Only [facility] - [facility] [address] [facility], [place] [address] Krystle Lira, DIRECTOR OF BLOOD-MACHINERY RIGGER Hepatic cirrhosis, unspecified hepatic cirrhosis type, unspecified whether ascites present (HCC) 01/17/2025 Travel from Last 3 Months Social History Tobacco Use Types Packs/Day Years Used Date Smoking Tobacco: Former Sex and Gender Information Value Date Recorded Sex Assigned at Not on file Legal Sex Male 5:[address] OPERATOR Gender Identity Not on file Sexual Orientation [...] st Contact Info) Description 04/11/2025 12:[address] HOGGER OPERATOR Office Visit [facility] [address] [place] [address], [place] [address] Krystle Lira, DIRECTOR OF BLOOD-MACHINERY RIGGER [address] [place] [address] [place] [phone] 04/11/2025 12:[address] HOGGER OPERATOR Procedure visit [facility] - GI [address] [place] [phone] Health Maintenance Due Date Last Done [...] Tdap) 12/06/1971 PNEUMOCOCCAL VACCINE 50+ (1 of 2 - PCV) 12/06/1971 ZOSTER VACCINE (1 of 2) 2002 AAA [...] to complete this topic Insurance MEDICARE MEDICARE [facility]
--- NOTE | 2025-03-24 09:51 | ECHO_ITS ---
Patient Info Name: Tim Kinney Age: 74 years : 1950 Gender: Male Ht: 72 in Wt: 195 lbs BSA: 2.13 m2 HR: 79 bpm BP: 169 / 78 mmHg Heart Rhythm: Sinus Arrhythmia Technical Quality: Fair Exam Date: 03/24/2025 9:54 AM Patient Status: O Admit Date: 03/24/2025 Exam Type: CA echo doppler color flow Complete two-dimensional, color flow and Doppler transthoracic echocardiogram is performed. Used Car Salesperson: Lenora Llanes Attending Provider: Benito De Santiago DO Summary 1. Left ventricular chamber size, wall thickness, systolic and diastolic function are normal with no regional wall motion abnormalities with an estimated ejection fraction of >70. 2. Right ventricle chamber size are normal. 3. There is mild mitral valve regurgitation. 4. Mild thickening of the mitral valve. 5. The tricuspid valve is structurally and functionally normal by two-dimensional, color flow Doppler and Doppler interrogation. 6. There is mild tricuspid valve regurgitation. 7. Estimated pulmonary arterial systolic pressure is 36 mmHg. 8. There is mild aortic valve sclerosis. 9. There is mild aortic valve regurgitation. 10. Pericardium is normal in appearance with no evidence for significant pericardial effusion. Left Ventricle Left ventricular chamber size, wall thickness, systolic and diastolic function are normal with no regional wall motion abnormalities with an estimated ejection fraction of >70. Right Ventricle Right ventricle chamber size are normal. Right ventricular systolic function is normal. Aortic Valve The aortic valve is trileaflet. There is mild aortic valve sclerosis. There is mild aortic valve regurgitation. Mitral Valve There is mild mitral valve regurgitation. Mild thickening of the mitral valve. Tricuspid Valve The tricuspid valve is structurally and functionally normal by two-dimensional, color flow Doppler and Doppler interrogation. There is mild tricuspid valve regurgitation. Estimated pulmonary arterial systolic pressure is 36 mmHg. Pulmonary Arteries Main pulmonary artery is normal by two dimensional, color flow and Doppler interrogation. Pericardium/Pleural Pericardium is normal in appearance with no evidence for significant pericardial effusion. Aorta The aortic root aorta is by two-dimensional , color flow Doppler and Doppler interrogation. The aortic root size at the sinus of Valsalva is normal. Left Ventricular Outflow Tract Name Value Normal LVOT 2D LVOT Diameter 1.9 cm LVOT Doppler LVOT Peak Velocity 113 cm/s LVOT Peak Gradient 5 mmHg LVOT Mean Gradient 3 mmHg LVOT VTI 24 cm LVOT VTI/AV VTI Ratio 0.9 LVOT Stroke Volume 67 ml LVOT CO 5.9 l/min LVOT CI 2.8 l/min/m2 Pulmonic Valve Name Value Normal PV Doppler PV Peak Velocity 92 cm/s PV Peak Gradient 3 mmHg Mitral Valve Name Value Normal MV Diastolic Function MV E Peak Velocity 93 cm/s MV A Peak Velocity 73 cm/s MV E/A 1.3 MV Decel Time (PW) 154 ms Tricuspid Valve Name Value Normal TV Regurgitation Doppler TR Peak Velocity 255 cm/s TR Peak Gradient 26 mmHg Estimated PAP/RSVP RA Pressure 10 mmHg <=5 PA Systolic Pressure 36 mmHg <36 RV Systolic Pressure 36 mmHg <36 Aorta Name Value Normal Ascending Aorta Ao Root Diameter (MM) 3.6 cm Ao Root Diam Index (MM) 1.7 cm/m2 Aortic Valve Name Value Normal AV Doppler AV Peak Velocity 128 cm/s AV Peak Gradient 7 mmHg AV Mean Gradient 4 mmHg AV VTI 26 cm AV Area (Cont Eq VTI) 2.6 cm2 >=3.0 AV Area (Cont Eq Reji) 2.5 cm2 AV DI (Reji) 0.89 AV Regurgitation 2D LVOT Area 2.8 cm2 Ventricles Name Value Normal LV Dimensions 2D/MM IVS Diastolic Thickness (2D) 1.0 cm 0.6-1.0 LVID Diastole (2D) 5.5 cm 4.2-5.8 LVIW Diastolic Thickness (2D) 1.1 cm 0.6-1.0 LVID Systole (2D) 2.9 cm 2.5-4.0 LVOT Diameter 1.9 cm LV Mass (2D Cubed) 217.59 g 88.00-224.00 LV Mass Index (2D Cubed) 102 g/m2 49-115 Relative Wall Thickness (2D) 0.38 <=0.42 LV Fractional Shortening/Ejection Fraction 2D/MM LV Fractional Shortening (2D) 47 % 25-43 LV EF (2D Teichholz) 78 % LV Diastolic Volume (4C MOD) 114 ml LV EF (4C MOD) 77 % LV Diastolic Volume (2C MOD) 86 ml LV EF (2C MOD) 73 % LV Diastolic Volume (BP MOD) 100 ml 62-150 LV Diastolic Volume Index (BP MOD) 47 ml/m2 34-74 LV Systolic Volume (BP MOD) 25 ml 21-61 LV Systolic Volume Index (BP MOD) 12 ml/m2 11-31 LV EF (BP MOD) 75 % 52-72 LV Diastolic Length (4C) 7.8 cm LV Systolic Length (4C) 5.8 cm LV Stroke Volume (4C MOD) 87 ml Atria Name Value Normal LA Dimensions LA Dimension (MM) 3.0 cm 3.0-4.0 Report Signatures
== END 2025-03-24 09:29 | disposition home or self-care (01) ==
PROVIDERS: PCP Internal Medicine; Visit Provider Internal Medicine
DX: R94.31 Abnormal electrocardiogram [ECG] [EKG] (principal); I10 Essential (primary) hypertension; I49.9 Cardiac arrhythmia, unspecified; I34.0 Nonrheumatic mitral (valve) insufficiency; I36.1 Nonrheumatic tricuspid (valve) insufficiency; I35.1 Nonrheumatic aortic (valve) insufficiency
CPT/HCPCS: 93306